=== PATIENT | female | born 1950 | race Caucasian/White ===

== ENCOUNTER 2018-05-23 23:13 | Emergency (ER) | payer OTHER, MEDICARE ==
[~2018-05-23 23:13] MED LIST: ACET325T51 PO; ASEN10TA10 SL; CELE-84 PO; DICY10CA13 PO; GABA300S PO; LISI1TAB13 PO; PANT40TA25 PO; VENL150T3 PO; ZOLP10TA6 PO
[2018-05-23] MEDS ORDERED: KETOROLAC TROMETHAMINE 30MG/ML ONE (23:30)
== END 2018-05-24 | disposition home or self-care (01) ==
LOC: EDH 23:13
DX: M79.7 Fibromyalgia (principal); I10 Essential (primary) hypertension; Z98.890 Other specified postprocedural states
CPT/HCPCS: 96372; 99283; J1885

== ENCOUNTER 2018-09-30 17:57 | Emergency (ER) | payer OTHER, MEDICARE ==
[2018-09-30 18:48] LABS: APPEARANCE,URINE Clear (CLEAR); BILIRUBIN,URINE Negative (NEGATIVE); COLOR,URINE Yellow (YELLOW); GLUCOSE, URINE (UA) Negative (NEGATIVE); KETONES,URINE Negative (NEGATIVE); LEUKOCYTE ESTERASE ,URINE Small (NEGATIVE); NITRATE,URINE Negative (NEGATIVE); OCCULT BLOOD,URINE Negative (NEGATIVE); PH,URINE 7.5 (5.0-8.0); PROTEIN,URINE Negative (NEGATIVE); UROBILINOGEN,URINE 0.2 mg/dL (0.2-1.0)
[2018-09-30 18:51] LABS: BASOPHILS % (AUTO) 0.5 % (0.0-5.0); HEMATOCRIT 41.1 % (36-48); LYMPHOCYTES % (AUTO) 26.8 % (21.0-51.0); MEAN CORPUSCULAR HEMOGLOBIN 34.6 pg (27.0-33.0); MEAN CORPUSCULAR HGB CONC 35.9 g/dL (32.0-36.0); MEAN CORPUSCULAR VOLUME 96.5 fL (79-99); MONOCYTES % (AUTO) 1.6 % (3.0-13.0); NEUTROPHILS % (AUTO) 71.1 % (40.0-77.0); NUCLEATED RED BLOOD CELLS 0.1 % (0.0-0.19); PLATELET COUNT (AUTO) 244 K/uL (130-400); RED BLOOD CELL COUNT(AUTO) 4.26 MIL/uL (4.00-5.50); WHITE BLOOD COUNT (AUTO) 6.4 K/uL (4.8-10.8)
[2018-09-30] MEDS ORDERED: MORPHINE SULFATE 4 MG/1ML SYG ONE (18:55)
[2018-09-30] MEDS ORDERED: ONDANSETRON HCL 4 MG/2 ML VIAL ONE (18:55)
[2018-09-30] MEDS ORDERED: SODIUM CHLORIDE 0.9% 1000ML 1,000 ML IV ONE (18:55)
[2018-09-30 19:03] LABS: CREATININE 0.8 mg/dL (0.5-1.5); POTASSIUM 3.6 mmol/L (3.5-5.1)
[2018-09-30 19:08] LABS: ALBUMIN 4.1 g/dL (3.5-5.0); BILIRUBIN,TOTAL 1.1 mg/dL (0.2-1.0); TOTAL PROTEIN, SERUM 6.9 g/dL (6.0-8.3)
[2018-09-30 19:39] LABS: BACTERIA,URINE Rare /HPF (None Seen); RBC,URINE None Seen /HPF (0-1); SQUAMOUS EPITHELIAL CELL,UR 0-2 /HPF (0-2); WBC,URINE 0-1 /HPF (0-1)
== END 2018-09-30 20:38 | disposition home or self-care (01) ==
LOC: EDH 17:57
DX: K57.90 Diverticulosis of intestine, part unspecified, without perforation or abscess without bleeding (principal); M79.7 Fibromyalgia; I10 Essential (primary) hypertension; K21.9 Gastro-esophageal reflux disease without esophagitis
CPT/HCPCS: 36415; 74176; 80053; 81001; 85025; 96374; 96375; 99284; J2270; J2405; J7030

== ENCOUNTER → 2019-11-26 | Outpatient (CLI) | payer OTHER, MEDICARE ==
[~2019-11-26] MED LIST changes: -LISI1TAB13 PO; +LISI1TAB29 PO
== END | disposition home or self-care (01) ==
LOC: SHCH 13:56
PROVIDERS: ATTEND Internal Medicine Cardiovascular Disease
DX: I35.1 Nonrheumatic aortic (valve) insufficiency (principal)
CPT/HCPCS: 93306

== ENCOUNTER → 2020-07-17 | Emergency (ER) | payer OTHER, MEDICARE ==
[~2020-07-17] MED LIST changes: -PANT40TA25 PO; +PANT40TA54 PO
[2020-07-17 21:56] LABS: BASOPHILS % (AUTO) 0.6 % (0.0-5.0); EOSINOPHILS % (AUTO) 0.8 % (0.0-8.0); HEMATOCRIT 32.5 % (36-48); LYMPHOCYTES % (AUTO) 30.9 % (21.0-51.0); MEAN CORPUSCULAR HEMOGLOBIN 33.3 pg (27.0-33.0); MEAN CORPUSCULAR HGB CONC 35.7 g/dL (32.0-36.0); MEAN CORPUSCULAR VOLUME 93.4 fL (79-99); MONOCYTES % (AUTO) 3.8 % (3.0-13.0); NEUTROPHILS % (AUTO) 63.7 % (40.0-77.0); PLATELET COUNT (AUTO) 156 K/uL (130-400); RED BLOOD CELL COUNT(AUTO) 3.48 MIL/uL (4.00-5.50); RED CELL DISTRIBUTION WIDTH 13.1 % (11.0-15.5); WHITE BLOOD COUNT (AUTO) 4.8 K/uL (4.8-10.8)
[2020-07-17 22:13] LABS: CARBON DIOXIDE 25 mmol/L (21-32); CHLORIDE 102 mmol/L (101-111); CREATININE 0.7 mg/dL (0.5-1.5); GLOMERULAR FILTR. RATE CALC 88 mL/min (>60); GLUCOSE,RANDOM 121 mg/dL (70-105); POTASSIUM 3.2 mmol/L (3.5-5.1); SODIUM SERUM 136 mmol/L (136-145); UREA NITROGEN, BLOOD 9 mg/dL (7-18)
[2020-07-17 22:18] LABS: ALANINE AMINOTRANSFERASE 22 U/L (12-78); ALBUMIN 3.4 g/dL (3.5-5.0); ALCOHOL, BLOOD < 3 mg/dL (0-10); ASPARTATE AMINOTRANSFERASE 17 U/L (10-37); BILIRUBIN,TOTAL 1.1 mg/dL (0.2-1.0); TOTAL PROTEIN, SERUM 6.4 g/dL (6.0-8.3)
[2020-07-17 22:34] LABS: APPEARANCE,URINE Clear (CLEAR); BILIRUBIN,URINE Negative (NEGATIVE); COLOR,URINE Yellow (YELLOW); GLUCOSE, URINE (UA) Negative (NEGATIVE); KETONES,URINE Negative (NEGATIVE); LEUKOCYTE ESTERASE ,URINE Negative (NEGATIVE); NITRATE,URINE Negative (NEGATIVE); OCCULT BLOOD,URINE Negative (NEGATIVE); PROTEIN,URINE Negative (NEGATIVE); UROBILINOGEN,URINE 0.2 mg/dL (0.2-1.0)
[2020-07-17 22:41] LABS: AMPHET/METH SCREEN,URINE NEGATIVE (NEGATIVE); BARBITURATE SCREEN, URINE NEGATIVE (NEGATIVE); BENZODIAZEPINES SCREEN,URINE NEGATIVE (NEGATIVE); CANNABINOID SCREEN,URINE NEGATIVE (NEGATIVE); COCAINE SCREEN,URINE NEGATIVE (NEGATIVE); OPIATE SCREEN,URINE NEGATIVE (NEGATIVE); PHENCYCLIDINE SCREEN,URINE NEGATIVE (NEGATIVE)
== END ==
LOC: EDH 20:04
DX: F13.10 Sedative, hypnotic or anxiolytic abuse, uncomplicated (principal); I10 Essential (primary) hypertension; K21.9 Gastro-esophageal reflux disease without esophagitis
CPT/HCPCS: 36415; 71045; 80053; 80305; 81003; 85025

== ENCOUNTER → 2021-04-17 | Outpatient (CLI) | payer OTHER | END | disposition home or self-care (01) | LOC: OIH 13:34 | PROVIDERS: ATTEND Internal Medicine Cardiovascular Disease | DX: Z13.6 Encounter for screening for cardiovascular disorders (principal) | CPT/HCPCS: 75571 ==

== ENCOUNTER → 2021-04-24 | Outpatient (CLI) | payer OTHER, MEDICARE | END | disposition home or self-care (01) | LOC: RAH 12:42 | PROVIDERS: ATTEND Orthopaedic Surgery | DX: M17.12 Unilateral primary osteoarthritis, left knee (principal); K57.90 Diverticulosis of intestine, part unspecified, without perforation or abscess without bleeding; N32.89 Other specified disorders of bladder; M85.88 Other specified disorders of bone density and structure, other site | CPT/HCPCS: 73700 ==

== ENCOUNTER 2021-05-15 08:16 | Observation (INO) | payer OTHER, MEDICARE ==
[2021-05-08 13:35] VITALS: BP 119/68
[2021-05-08 14:03] LABS: CREATININE 0.9 mg/dL (0.5-1.5)
[2021-05-08 14:06] LABS: INR 1.01 (0.85-1.15)
[2021-05-08 14:07] LABS: PARTIAL THROMBOPLASTIN TIME 28.1 SEC (26.3-35.5)
[2021-05-08 14:15] LABS: BASOPHILS % (AUTO) 0.6 % (0.0-5.0); EOSINOPHILS % (AUTO) 1.1 % (0.0-8.0); HEMATOCRIT 35.4 % (36-48); LYMPHOCYTES % (AUTO) 47.3 % (21.0-51.0); MEAN CORPUSCULAR HEMOGLOBIN 32.1 pg (27.0-33.0); MEAN CORPUSCULAR HGB CONC 35.6 g/dL (32.0-36.0); MEAN CORPUSCULAR VOLUME 90.1 fL (79-99); MONOCYTES % (AUTO) 3.6 % (3.0-13.0); PLATELET COUNT (AUTO) 211 K/uL (130-400); RED BLOOD CELL COUNT(AUTO) 3.93 MIL/uL (4.00-5.50); RED CELL DISTRIBUTION WIDTH 13.5 % (11.0-15.5); WHITE BLOOD COUNT (AUTO) 5.3 K/uL (4.8-10.8)
[2021-05-15] VITALS (24 sets, daily range): BP systolic 125–154; BP diastolic 60–75
[~2021-05-15] VITALS: Ht 162.6 cm; Wt 164.2 kg
[2021-05-15] MEDS: CEFAZOLIN SODIUM 1 GM VIAL IVP SCH ×3 (06:00→20:47)
[~2021-05-15 08:16] MED LIST changes: -ACET325T51 PO; +AMLO-257 PO; +ATOR10TA69 PO; -CELE-84 PO; +CLON1TAB12 PO; +CLOP75TA32 PO; +DENO60DI SQ; -DICY10CA13 PO; +FLUT15.845 NS; -GABA300S PO; +HYDR12.54 PO; +LACTATED RINGERS 1000ML 1,000 ML IV SCH; -LISI1TAB29 PO; +LOSA100T58 PO; +NABU-141 PO; +NALO25TA4 PO; +OXYC10TA48 PO; +PREG50CA63 PO; +ROPIVICAINE 250MG+KETOROLAC 15MG+EPINEPHRINE 0.3+CLONIDINE 80 IV PRN; +TRANEXAMIC ACID 3,000 MG in 0.9% NACL 250ML 250 ML TP SCH; -VENL150T3 PO
[2021-05-15] MEDS ORDERED: MORPHINE 2 MG SYG ONE (10:50)
[2021-05-15] MEDS ORDERED: LIDOCAINE PF 100MG/5ML (2%) SYRINGE 5ML ONE (11:17)
[2021-05-15] MEDS ORDERED: SUCCINYLCHOLINE CHLORIDE 20 MG/ML 10 ML VIAL ONE (11:18)
[2021-05-15] MEDS ORDERED: FENTANYL CITRATE PF 50 MCG/1 ML 2ML VIAL ONE (11:19)
[2021-05-15] MEDS ORDERED: PROPOFOL 10 MG/ML 20ML VIAL IV ONE (11:19)
[2021-05-15] MEDS ORDERED: ROCURONIUM 10MG/1ML SYR 10 MG/ML ML ONE (11:19)
[2021-05-15] MEDS ORDERED: ROPIVACAINE 0.5% 5MG/ML 30ML IJ ONE (11:23)
[2021-05-15] MEDS ORDERED: HYDROCODONE/ACETAMINOPHEN 5/325 MG TAB PO PRN (12:00)
[2021-05-15] MEDS ORDERED: POTASSIUM CHLORIDE 20MEQ/100ML 100 ML IV PRN (12:00)
[2021-05-15] MEDS ORDERED: POTASSIUM CHLORIDE 10% ELIXIR 20 MEQ/15 ML UDCUP PO PRN (12:00)
[2021-05-15] MEDS ORDERED: OXYCODONE HCL 5 MG TAB PO PRN (12:00)
[2021-05-15] MEDS ORDERED: PROLIA 60 MG SQ SCH (12:00)
[2021-05-15] MEDS: ACETAMINOPHEN 500 MG TABLET PO SCH ×2 (12:00→19:04)
[2021-05-15] MEDS: 0.9%NACL 1000ML 1,000 ML IV SCH ×2 (12:00→22:00)
[2021-05-15] MEDS ORDERED: LIDOCAINE HCL-MPF 1% 2ML VIAL IV PRN (12:00)
[2021-05-15] MEDS ORDERED: ONDANSETRON 4MG INJ IVP PRN (12:00)
[2021-05-15] MEDS ORDERED: TRANEXAMIC ACID 1000MG/10ML ONE (12:39)
[2021-05-15] MEDS: CLONAZEPAM 1MG TAB PO SCH ×2 (14:00→19:04)
[2021-05-15] MEDS: PREGABALIN 25 MG CAP PO SCH ×2 (14:00→19:04)
[2021-05-15] MEDS ORDERED: GLYCOPYRROLATE 1 MG/5 ML SYRINGE ONE (14:02)
[2021-05-15] MEDS ORDERED: EPHEDRINE SULFATE 50 MG/ML AMPULE ONE (14:07)
[2021-05-15] MEDS: AMLODIPINE 5 MG TAB PO SCH (15:00)
[2021-05-15] MEDS ORDERED: ONDANSETRON 4MG INJ ONE (16:07)
[2021-05-15] MEDS ORDERED: NEOSTIGMINE 5MG/5ML SYR IV ONE (16:07)
[2021-05-15] MEDS: OXYCODONE HCL 5 MG TAB PO SCH ×2 (17:00→21:12)
[2021-05-15] MEDS ORDERED: MEPERIDINE-PF 25 MG/ML SYG ONE (17:08)
[2021-05-15] MEDS: ZOLPIDEM TARTRATE 5 MG TAB PO SCH (20:45)
[2021-05-15] MEDS: MORPHINE 4 MG SYG IVP PRN (20:46)
[2021-05-15] MEDS: SAPHRIS 10 MG SL SCH (21:00)
[2021-05-16] MEDS: MORPHINE 4 MG SYG IVP PRN ×2 (00:37→10:28)
[2021-05-16] MEDS ORDERED: CEFAZOLIN SODIUM 1 GM VIAL ONE (03:18)
[2021-05-16] MEDS: CEFAZOLIN SODIUM 1 GM VIAL IVP SCH (03:28)
[2021-05-16] MEDS: ACETAMINOPHEN 500 MG TABLET PO SCH ×3 (03:29→20:00)
[2021-05-16 03:43] VITALS: BP 132/67
[2021-05-16 05:33] LABS: HEMATOCRIT 29.7 % (36-48); MEAN CORPUSCULAR HEMOGLOBIN 32.2 pg (27.0-33.0); RED BLOOD CELL COUNT(AUTO) 3.23 MIL/uL (4.00-5.50); RED CELL DISTRIBUTION WIDTH 14.1 % (11.0-15.5); WHITE BLOOD COUNT (AUTO) 6.1 K/uL (4.8-10.8)
[2021-05-16 06:07] LABS: CREATININE 0.8 mg/dL (0.5-1.5); POTASSIUM 3.3 mmol/L (3.5-5.1)
[2021-05-16 07:26] VITALS: BP 153/66
[2021-05-16] MEDS: 0.9%NACL 1000ML 1,000 ML IV SCH (08:00)
[2021-05-16] MEDS: POLYETHYLENE GLYCOL 3350 17 GM POWD.PACK PO SCH (09:00)
[2021-05-16] MEDS: MOVANTIK 25 MG PO SCH (09:00)
[2021-05-16] MEDS: PANTOPRAZOLE 40 MG TAB DR PO SCH (09:15)
[2021-05-16] MEDS: LOSARTAN 100 MG TABLET PO SCH (09:15)
[2021-05-16] MEDS: PREGABALIN 25 MG CAP PO SCH ×3 (09:16→19:56)
[2021-05-16] MEDS: CLONAZEPAM 1MG TAB PO SCH ×3 (09:16→19:53)
[2021-05-16] MEDS: HYDROCHLOROTHIAZIDE 25 MG TABLET PO SCH (09:16)
[2021-05-16] MEDS: OXYCODONE HCL 5 MG TAB PO SCH ×2 (09:19→12:49)
[2021-05-16] MEDS ORDERED: FENTANYL 25 MCG/HR PATCH TD SCH (09:58)
[2021-05-16 11:34] VITALS: BP 157/72
[2021-05-16] MEDS: CELECOXIB 100 MG CAP PO SCH ×2 (12:48→19:53)
[2021-05-16] MEDS: AMLODIPINE 5 MG TAB PO SCH (15:52)
[2021-05-16] MEDS: KCL 20 MEQ ERTAB PO PRN ×2 (16:00→16:01)
[2021-05-16 16:02] VITALS: BP 154/71
[2021-05-16 19:39] VITALS: BP 147/64
[2021-05-16] MEDS: ZOLPIDEM TARTRATE 5 MG TAB PO SCH (19:53)
[2021-05-16] MEDS: SAPHRIS 10 MG SL SCH (19:59)
[2021-05-17] VITALS: BP 138/61
[2021-05-17] MEDS: MORPHINE 4 MG SYG IVP PRN (01:02)
[2021-05-17 03:52] VITALS: BP 138/52
[2021-05-17] MEDS: ACETAMINOPHEN 500 MG TABLET PO SCH ×2 (04:00→12:14)
[2021-05-17] MEDS: OXYCODONE HCL 5 MG TAB PO SCH ×3 (06:19→12:13)
[2021-05-17 07:33] VITALS: BP 140/66
[2021-05-17] MEDS: MOVANTIK 25 MG PO SCH (09:00)
[2021-05-17] MEDS: POLYETHYLENE GLYCOL 3350 17 GM POWD.PACK PO SCH (09:00)
[2021-05-17] MEDS: CLONAZEPAM 1MG TAB PO SCH (09:44)
[2021-05-17] MEDS: PANTOPRAZOLE 40 MG TAB DR PO SCH (09:45)
[2021-05-17] MEDS: CELECOXIB 100 MG CAP PO SCH (09:45)
[2021-05-17] MEDS: HYDROCHLOROTHIAZIDE 25 MG TABLET PO SCH (09:45)
[2021-05-17] MEDS: LOSARTAN 100 MG TABLET PO SCH (09:45)
[2021-05-17] MEDS: PREGABALIN 25 MG CAP PO SCH (09:45)
[2021-05-17 12:03] VITALS: BP 130/72
[2021-05-18] MEDS ORDERED: BISACODYL 10 MG SUPP.RECT RC PRN (12:00)
== END 2021-05-17 14:20 ==
LOC: DAH 08:16 → INTOOBSV 08:17 → DAH 08:17 → DAHIP 08:17 → 3BH 17:25
PROVIDERS: ADMIT Orthopaedic Surgery; ATTEND Orthopaedic Surgery
DX: M17.12 Unilateral primary osteoarthritis, left knee (principal); Z20.822 Contact with and (suspected) exposure to COVID-19; I10 Essential (primary) hypertension; M79.7 Fibromyalgia; R11.2 Nausea with vomiting, unspecified
CPT/HCPCS: 27447; S2900; 36415; 64447; 73560; 76942; 80048; 85025; 85027; 85610; 85730; 87635; 87641; 88305; 88311; 96361; 96374; 96375; 96376; 97039; C9803; G0378; J0171; J0330; J0690; J0735; J1885; J2001; J2175; J2270; J2405; J2704; J2710; J2795; J3010; J3490; J7040; J7050; J7120

== ENCOUNTER → 2022-01-02 | Outpatient (CLI) | payer OTHER, MEDICARE ==
[~2022-01-02] MED LIST changes: +ALBUTEROL 0.083% 2.5 MG/3 ML INH IH ONE; -LACTATED RINGERS 1000ML 1,000 ML IV SCH; -ROPIVICAINE 250MG+KETOROLAC 15MG+EPINEPHRINE 0.3+CLONIDINE 80 IV PRN; -TRANEXAMIC ACID 3,000 MG in 0.9% NACL 250ML 250 ML TP SCH
== END | disposition home or self-care (01) ==
LOC: RESP 12:53
PROVIDERS: ATTEND Internal Medicine Cardiovascular Disease
DX: R06.00 Dyspnea, unspecified (principal)
CPT/HCPCS: 94060

== ENCOUNTER → 2022-01-10 | Outpatient (CLI) | payer OTHER, MEDICARE ==
[~2022-01-10] MED LIST changes: -ALBUTEROL 0.083% 2.5 MG/3 ML INH IH ONE
== END | disposition home or self-care (01) ==
LOC: SHCH 13:42
PROVIDERS: ATTEND Internal Medicine Cardiovascular Disease
DX: I35.1 Nonrheumatic aortic (valve) insufficiency (principal); I11.9 Hypertensive heart disease without heart failure; E66.9 Obesity, unspecified
CPT/HCPCS: 93306

== ENCOUNTER 2022-08-15 09:05 | Observation (INO) | payer OTHER, MEDICARE ==
[~2022-08-15] VITALS: Ht 167.6 cm; Wt 79.2 kg
[2022-08-15 09:36] LABS: BASOPHILS % (AUTO) 0.7 % (0.0-5.0); EOSINOPHILS % (AUTO) 1.1 % (0.0-8.0); HEMATOCRIT 31.9 % (36-48); LYMPHOCYTES % (AUTO) 36.7 % (21.0-51.0); MEAN CORPUSCULAR HEMOGLOBIN 32.9 pg (27.0-33.0); MEAN CORPUSCULAR HGB CONC 36.7 g/dL (32.0-36.0); MEAN CORPUSCULAR VOLUME 89.6 fL (79-99); MONOCYTES % (AUTO) 5.3 % (3.0-13.0); NEUTROPHILS % (AUTO) 55.5 % (40.0-77.0); PLATELET COUNT (AUTO) 163 K/uL (130-400); RED BLOOD CELL COUNT(AUTO) 3.56 MIL/uL (4.00-5.50); RED CELL DISTRIBUTION WIDTH 13.1 % (11.0-15.5); WHITE BLOOD COUNT (AUTO) 2.8 K/uL (4.8-10.8)
[2022-08-15 09:50] LABS: ALANINE AMINOTRANSFERASE 20 U/L (12-78); ALBUMIN 3.8 g/dL (3.5-5.0); ASPARTATE AMINOTRANSFERASE 11 U/L (10-37); CARBON DIOXIDE 26 mmol/L (21-32); GLOMERULAR FILTR. RATE CALC 58 mL/min (>60); GLUCOSE,RANDOM 107 mg/dL (70-105); POTASSIUM 3.9 mmol/L (3.5-5.1); SODIUM SERUM 120 mmol/L (136-145); TOTAL PROTEIN, SERUM 6.2 g/dL (6.0-8.3); UREA NITROGEN, BLOOD 4 mg/dL (7-18)
[2022-08-15 09:51] LABS: CHLORIDE 86 mmol/L (101-111); LIPASE < 50 U/L (114-286)
[2022-08-15 10:05] LABS: APPEARANCE,URINE CLEAR (CLEAR); BILIRUBIN,URINE NEGATIVE (NEGATIVE); COLOR,URINE COLORLESS (YELLOW); GLUCOSE, URINE (UA) NEGATIVE (NEGATIVE); KETONES,URINE NEGATIVE (NEGATIVE); LEUKOCYTE ESTERASE ,URINE 75 Leu/uL (NEGATIVE); NITRATE,URINE NEGATIVE (NEGATIVE); OCCULT BLOOD,URINE NEGATIVE (NEGATIVE); PROTEIN,URINE NEGATIVE (NEGATIVE); UROBILINOGEN,URINE 0.2 mg/dL (0.2-1.0)
[2022-08-15 10:15] LABS: RBC,URINE 0-1 /HPF (0-1); SQUAMOUS EPITHELIAL CELL,UR RARE /HPF (0-2)
[2022-08-15 10:22] LABS: EOSINOPHILS % (MANUAL) 3 % (1-6); LYMPHOCYTES % (MANUAL) 40 % (22-44); MAN.DIFF COMMENT-IMPRESSION MANUAL DIFFERENTIAL; MONOCYTES % (MANUAL) 5 % (2-9); PLATELET MORPHOLOGY COMMENT ADEQUATE; SEGMENTED NEUTROPHILS % 52 % (40-70)
[2022-08-15] MEDS ORDERED: 0.9%NACL 1000ML 1,000 ML IV ONE (10:30)
[2022-08-15] MEDS ORDERED: CEFTRIAXONE 1G VIAL IVP ONE (10:30)
[2022-08-15] MEDS ORDERED: ONDANSETRON 4MG INJ IVP ONE (11:00)
[2022-08-15] MEDS ORDERED: KETOROLAC 15MG/ML VIAL (15MG/ML) IV ONE (11:00)
[2022-08-15] MEDS ORDERED: ONDANSETRON 4MG INJ IVP PRN (12:00)
[2022-08-15] MEDS ORDERED: HYDRALAZINE 20MG/ML VIAL IV PRN (12:00)
[2022-08-15] MEDS ORDERED: LABETALOL 20MG SYG IV PRN (12:00)
[2022-08-15] MEDS ORDERED: LACTULOSE 20 GM/30 ML UDCUP PO PRN (12:00)
[2022-08-15] MEDS ORDERED: ALBUTEROL 0.083% 2.5 MG/3 ML INH IH PRN (12:00)
[2022-08-15] MEDS ORDERED: HYDROMORPHONE 1 MG INJ IVP PRN (12:00)
[2022-08-15] MEDS: 0.9%NACL 1000ML 1,000 ML IV SCH ×2 (13:13→19:51)
[2022-08-15] MEDS: LACTULOSE 20 GM/30 ML UDCUP PO SCH ×2 (15:00→19:51)
[2022-08-15] MEDS: CEFEPIME HCL 2 GM VIAL IVP SCH (15:08)
[2022-08-15 15:15] LABS: CREATININE 0.8 mg/dL (0.5-1.5)
[2022-08-15] MEDS: INSULIN HUMULIN R 100 UNIT/ML 3ML SQ SCH ×2 (16:30→21:00)
[2022-08-15 19:30] VITALS: BP 115/57
[2022-08-15] MEDS: ACETAMINOPHEN 325 MG TAB PO PRN (19:52)
[2022-08-16] MEDS: 0.9%NACL 1000ML 1,000 ML IV SCH (03:55)
[2022-08-16] MEDS: CEFEPIME HCL 2 GM VIAL IVP SCH (03:55)
[2022-08-16 04:35] VITALS: BP 103/50
[2022-08-16 05:08] LABS: BASOPHILS % (AUTO) 0.7 % (0.0-5.0); EOSINOPHILS % (AUTO) 0.7 % (0.0-8.0); HEMATOCRIT 29.8 % (36-48); LYMPHOCYTES % (AUTO) 45.5 % (21.0-51.0); MEAN CORPUSCULAR HEMOGLOBIN 32.7 pg (27.0-33.0); MEAN CORPUSCULAR HGB CONC 34.9 g/dL (32.0-36.0); MEAN CORPUSCULAR VOLUME 93.7 fL (79-99); MONOCYTES % (AUTO) 4.7 % (3.0-13.0); PLATELET COUNT (AUTO) 155 K/uL (130-400); RED BLOOD CELL COUNT(AUTO) 3.18 MIL/uL (4.00-5.50); RED CELL DISTRIBUTION WIDTH 13.7 % (11.0-15.5); WHITE BLOOD COUNT (AUTO) 2.8 K/uL (4.8-10.8)
[2022-08-16 05:26] LABS: CREATININE 0.7 mg/dL (0.5-1.5); MAGNESIUM 1.8 mg/dL (1.80-2.40); PHOSPHORUS 3.3 mg/dL (2.5-4.9); POTASSIUM 4.1 mmol/L (3.5-5.1); THYROID STIMULATING HORMONE 3.94 uIU/mL (0.36-3.74)
[2022-08-16 05:54] LABS: B-TYPE NATRIURETIC PEPTIDE 71 pg/mL (0-100)
[2022-08-16 07:00] VITALS: BP 120/66
[2022-08-16] MEDS: INSULIN HUMULIN R 100 UNIT/ML 3ML SQ SCH (07:30)
[2022-08-16] MEDS: LACTULOSE 20 GM/30 ML UDCUP PO SCH (09:19)
[2022-08-16] MEDS: ACETAMINOPHEN 325 MG TAB PO PRN (09:20)
[2022-08-16 11:00] VITALS: BP 142/69
[2022-08-16] MEDS ORDERED: BISACODYL 10 MG SUPP.RECT RC ONE (13:31)
[2022-08-16] MEDS ORDERED: TOPIRAMATE 25 MG TABLET PO SCH (14:30)
[2022-08-16] MEDS ORDERED: AMOX1TAB16 PO (14:34)
[2022-08-16] MEDS ORDERED: TOPI25TA42 PO (14:34)
[2022-08-17] MEDS ORDERED: LEVO750T68 PO (07:04)
== END 2022-08-16 15:00 | disposition home or self-care (01) ==
LOC: EDH 09:05 → EDHIP 11:48 → 4AH 17:25
PROVIDERS: ADMIT Internal Medicine Critical Care Medicine; ATTEND Internal Medicine Critical Care Medicine
DX: E87.1 Hypo-osmolality and hyponatremia (principal); N30.00 Acute cystitis without hematuria; R51.9 Headache, unspecified; K57.90 Diverticulosis of intestine, part unspecified, without perforation or abscess without bleeding; I11.0 Hypertensive heart disease with heart failure; I50.30 Unspecified diastolic (congestive) heart failure; G47.00 Insomnia, unspecified; G89.29 Other chronic pain; M54.9 Dorsalgia, unspecified; E86.0 Dehydration; K80.20 Calculus of gallbladder without cholecystitis without obstruction; B96.5 Pseudomonas (aeruginosa) (mallei) (pseudomallei) as the cause of diseases classified elsewhere; K59.09 Other constipation; F41.8 Other specified anxiety disorders; Z91.199 Patient's noncompliance with other medical treatment and regimen due to unspecified reason; Z91.81 History of falling; Z79.899 Other long term (current) drug therapy
CPT/HCPCS: 96374; 96361 ×2; 96375; 99285; 84484; 80053; 82140; 83690; 85025 ×2; 87040 ×2; 87077; 87088; 87186; 82948; 83605 ×2; 81001; 36415 ×2; 70450; 74176; 76705; 93005; 84145 ×2; 96376; 84443; 83735; 84100; 80048; 83880; G0378 ×27; J7030 ×2; J0696; J2405; J0692 ×2; J1885

== ENCOUNTER 2022-11-05 09:58 | Emergency (ER) | payer OTHER, MEDICARE ==
[~2022-11-05] VITALS: Ht 162.6 cm; Wt 73.5 kg
[~2022-11-05 09:58] MED LIST changes: -HYDR12.54 PO; +LEVO750T68 PO; -LOSA100T58 PO; +TOPI25TA42 PO
[2022-11-05 10:24] LABS: BASOPHILS % (AUTO) 0.6 % (0.0-5.0); EOSINOPHILS % (AUTO) 1.1 % (0.0-8.0); HEMATOCRIT 36.2 % (36-48); LYMPHOCYTES % (AUTO) 38.9 % (21.0-51.0); MEAN CORPUSCULAR HEMOGLOBIN 31.2 pg (27.0-33.0); MEAN CORPUSCULAR HGB CONC 33.7 g/dL (32.0-36.0); MEAN CORPUSCULAR VOLUME 92.6 fL (79-99); MONOCYTES % (AUTO) 4.5 % (3.0-13.0); NEUTROPHILS % (AUTO) 54.6 % (40.0-77.0); PLATELET COUNT (AUTO) 213 K/uL (130-400); RED BLOOD CELL COUNT(AUTO) 3.91 MIL/uL (4.00-5.50); RED CELL DISTRIBUTION WIDTH 14.4 % (11.0-15.5); WHITE BLOOD COUNT (AUTO) 6.5 K/uL (4.8-10.8)
[2022-11-05 10:27] LABS: APPEARANCE,URINE CLEAR (CLEAR); BILIRUBIN,URINE NEGATIVE (NEGATIVE); COLOR,URINE COLORLESS (YELLOW); GLUCOSE, URINE (UA) NEGATIVE (NEGATIVE); KETONES,URINE NEGATIVE (NEGATIVE); LEUKOCYTE ESTERASE ,URINE NEGATIVE Leu/uL (NEGATIVE); NITRATE,URINE NEGATIVE (NEGATIVE); OCCULT BLOOD,URINE NEGATIVE (NEGATIVE); PROTEIN,URINE NEGATIVE (NEGATIVE); UROBILINOGEN,URINE 0.2 mg/dL (0.2-1.0)
[2022-11-05 10:37] LABS: CREATININE 0.8 mg/dL (0.5-1.5); POTASSIUM 3.7 mmol/L (3.5-5.1)
[2022-11-05 10:39] LABS: ALBUMIN 3.9 g/dL (3.5-5.0); TOTAL PROTEIN, SERUM 6.4 g/dL (6.0-8.3)
[2022-11-05] MEDS ORDERED: ACETAMINOPHEN 500 MG TABLET PO ONE (12:30)
[2022-11-05 13:23] VITALS: BP 144/71
== END 2022-11-05 13:26 | disposition home or self-care (01) ==
LOC: EDH 09:58
DX: J32.9 Chronic sinusitis, unspecified (principal); R10.11 Right upper quadrant pain; I10 Essential (primary) hypertension; F20.9 Schizophrenia, unspecified; F41.9 Anxiety disorder, unspecified; F32.A Depression, unspecified; Z88.5 Allergy status to narcotic agent; Z87.440 Personal history of urinary (tract) infections; Z79.899 Other long term (current) drug therapy; Z20.822 Contact with and (suspected) exposure to COVID-19
CPT/HCPCS: 99283; 87635; 80053; 83690; 85025; 87804 ×2; 81003; 36415; C9803

== ENCOUNTER 2023-08-27 11:00 | Emergency (ER) | payer OTHER, MEDICARE ==
[~2023-08-27] VITALS: Ht 162.6 cm; Wt 64.4 kg
[~2023-08-27 11:00] MED LIST changes: -PREG50CA63 PO; +PREG50CA64 PO
[2023-08-27] MEDS ORDERED: MORPHINE 4 MG SYG IVP ONE (12:00)
[2023-08-27] MEDS ORDERED: LACTATED RINGERS 1000ML 1,000 ML IV ONE ×2 (12:00)
[2023-08-27] MEDS ORDERED: FAMOTIDINE 20MG VIAL IV ONE (12:00)
[2023-08-27] MEDS ORDERED: METOCLOPRAMIDE 10 MG/2 ML VIAL IVP ONE (12:00)
[2023-08-27 12:05] LABS: BASOPHILS # (AUTO) 0.04 K/uL (0.00-0.20); BASOPHILS % (AUTO) 0.7 % (0.0-5.0); EOSINOPHILS # (AUTO) 0.02 K/uL (0.00-0.70); EOSINOPHILS % (AUTO) 0.3 % (0.0-8.0); HEMATOCRIT 40.9 % (36-48); IMMATURE GRANULOCYTE ABSOLUTE 0.02 K/uL (0-1); LYMPHOCYTES # (AUTO) 1.4 K/uL (1.0-4.8); LYMPHOCYTES % (AUTO) 23.2 % (21.0-51.0); MEAN CORPUSCULAR HEMOGLOBIN 31.1 pg (27.0-33.0); MEAN CORPUSCULAR VOLUME 88.9 fL (79-99); MONOCYTES # (AUTO) 0.3 K/uL (0.1-1.0); MONOCYTES % (AUTO) 4.7 % (3.0-13.0); NEUTROPHILS # (AUTO) 4.2 K/uL (1.8-7.7); NEUTROPHILS % (AUTO) 70.8 % (40.0-77.0); PLATELET COUNT (AUTO) 234 K/uL (130-400); RED CELL DISTRIBUTION WIDTH 15.2 % (11.0-15.5); WHITE BLOOD COUNT (AUTO) 5.9 K/uL (4.8-10.8)
[2023-08-27 12:08] LABS: ALBUMIN 4.3 g/dL (3.5-5.0); CREATININE 0.8 mg/dL (0.5-1.5)
[2023-08-27 12:14] LABS: BILIRUBIN,TOTAL 0.8 mg/dL (0.2-1.0); TOTAL PROTEIN, SERUM 7.4 g/dL (6.0-8.3)
[2023-08-27 12:37] LABS: THYROID STIMULATING HORMONE 0.76 uIU/mL (0.36-3.74)
[2023-08-27 13:34] LABS: APPEARANCE,URINE CLEAR (CLEAR); BILIRUBIN,URINE NEGATIVE (NEGATIVE); COLOR,URINE LIGHT-YELLOW (YELLOW); GLUCOSE, URINE (UA) NEGATIVE (NEGATIVE); KETONES,URINE 40 mg/dL (NEGATIVE); LEUKOCYTE ESTERASE ,URINE NEGATIVE Leu/uL (NEGATIVE); NITRATE,URINE NEGATIVE (NEGATIVE); OCCULT BLOOD,URINE NEGATIVE (NEGATIVE); PH,URINE 7.5 (5.0-8.0); PROTEIN,URINE NEGATIVE (NEGATIVE); UROBILINOGEN,URINE 0.2 mg/dL (0.2-1.0)
[2023-08-27 13:48] LABS: ADD UA MICROSCOPIC YES
[2023-08-27 13:52] LABS: SQUAMOUS EPITHELIAL CELL,UR RARE /HPF (0-2); WBC,URINE 0-1 /HPF (0-1)
[2023-08-27] MEDS ORDERED: IOHEXOL-350 75 ML VIAL IV ONE (13:55)
[2023-08-27] MEDS ORDERED: POLY17PO4 PO (16:30)
[2023-08-27 17:24] VITALS: BP 157/74; PULSE 58; RESP 18; O2SAT 99
== END 2023-08-27 17:19 | disposition home or self-care (01) ==
LOC: EDH 11:00
DX: K57.90 Diverticulosis of intestine, part unspecified, without perforation or abscess without bleeding (principal); K80.20 Calculus of gallbladder without cholecystitis without obstruction; K80.50 Calculus of bile duct without cholangitis or cholecystitis without obstruction; F41.9 Anxiety disorder, unspecified; F31.9 Bipolar disorder, unspecified; I10 Essential (primary) hypertension; Z79.02 Long term (current) use of antithrombotics/antiplatelets; Z79.899 Other long term (current) drug therapy; Z88.5 Allergy status to narcotic agent
CPT/HCPCS: 99285; 74178; 96374; 96361; 76705; 96375; 84443; 82550; 83735; 84484; 80053; 83690; 85025; 81001; 36415; 93005; J7120; J3490; J2270; J2765; Q9967

== ENCOUNTER 2023-12-17 23:30 | Observation (INO) | payer OTHER, MEDICARE ==
[~2023-12-17] VITALS: Ht 162.6 cm; Wt 84.0 kg
[~2023-12-17 23:30] MED LIST changes: +POLY17PO4 PO
[2023-12-18] MEDS: PROMETHAZINE HCL 25 MG/ML 1ML AMPULE IM ONE (00:39)
[2023-12-18 00:59] LABS: BASOPHILS # (AUTO) 0.03 K/uL (0.00-0.20); BASOPHILS % (AUTO) 0.5 % (0.0-5.0); EOSINOPHILS % (AUTO) 1.6 % (0.0-8.0); HEMATOCRIT 35.5 % (36-48); IMMATURE GRANULOCYTE ABSOLUTE 0.04 K/uL (0-1); LYMPHOCYTES # (AUTO) 1.2 K/uL (1.0-4.8); LYMPHOCYTES % (AUTO) 19.1 % (21.0-51.0); MEAN CORPUSCULAR HEMOGLOBIN 31.6 pg (27.0-33.0); MEAN CORPUSCULAR HGB CONC 36.1 g/dL (32.0-36.0); MEAN CORPUSCULAR VOLUME 87.7 fL (79-99); MONOCYTES # (AUTO) 0.3 K/uL (0.1-1.0); MONOCYTES % (AUTO) 5.4 % (3.0-13.0); NEUTROPHILS # (AUTO) 4.4 K/uL (1.8-7.7); NEUTROPHILS % (AUTO) 72.7 % (40.0-77.0); PLATELET COUNT (AUTO) 251 K/uL (130-400); RED BLOOD CELL COUNT(AUTO) 4.05 MIL/uL (4.00-5.50); RED CELL DISTRIBUTION WIDTH 13.4 % (11.0-15.5); WHITE BLOOD COUNT (AUTO) 6.1 K/uL (4.8-10.8)
[2023-12-18] MEDS: MAG/ALUM/SIMETH 30 ML UDCUP PO ONE (01:07)
[2023-12-18] MEDS: LACTATED RINGERS 1000ML 1,000 ML IV ONE (01:07)
[2023-12-18 01:14] LABS: ALBUMIN 3.6 g/dL (3.5-5.0); BILIRUBIN,TOTAL 0.8 mg/dL (0.2-1.0); CREATININE 0.6 mg/dL (0.5-1.0); TOTAL PROTEIN, SERUM 6.6 g/dL (6.0-8.3)
[2023-12-18 01:18] LABS: POTASSIUM 2.9 mmol/L (3.5-5.1)
[2023-12-18 02:00] LABS: APPEARANCE,URINE CLEAR (CLEAR); BILIRUBIN,URINE NEGATIVE (NEGATIVE); COLOR,URINE COLORLESS (YELLOW); GLUCOSE, URINE (UA) NEGATIVE (NEGATIVE); KETONES,URINE NEGATIVE (NEGATIVE); LEUKOCYTE ESTERASE ,URINE NEGATIVE Leu/uL (NEGATIVE); NITRATE,URINE NEGATIVE (NEGATIVE); OCCULT BLOOD,URINE NEGATIVE (NEGATIVE); PROTEIN,URINE NEGATIVE (NEGATIVE); UROBILINOGEN,URINE 0.2 mg/dL (0.2-1.0)
[2023-12-18 02:02] LABS: ADD UA MICROSCOPIC NO
[2023-12-18] MEDS: POTASSIUM BICARB/CIT AC 25 MEQ TABLET.EFF PO ONE ×2 (03:00→03:01)
[2023-12-18] MEDS: NITROGLYCERIN 1GM OINT 1 INCH/1GM TD ONE (03:04)
[2023-12-18] MEDS ORDERED: HALOPERIDOL INJ 5 MG/ML VIAL IM SCH (03:30)
[2023-12-18] MEDS: HALOPERIDOL INJ 5 MG/ML VIAL IM SCH (03:48)
[2023-12-18] MEDS ORDERED: LACTULOSE 20 GM/30 ML UDCUP PO PRN (04:00)
[2023-12-18] MEDS ORDERED: PROMETHAZINE HCL 25 MG/ML 1ML AMPULE IM PRN (04:00)
[2023-12-18] MEDS ORDERED: IPRATROPIUM/ALBUTEROL SULFATE 3 ML SOLUTION IH PRN (04:00)
[2023-12-18] MEDS ORDERED: TEMAZEPAM 15 MG CAPSULE PO PRN (04:00)
[2023-12-18] MEDS ORDERED: ACETAMINOPHEN 325 MG TAB PO PRN (04:00)
[2023-12-18] MEDS ORDERED: ONDANSETRON 4MG INJ IVP PRN (04:00)
[2023-12-18] MEDS ORDERED: HYDRALAZINE 20MG/ML VIAL IV PRN (04:00)
[2023-12-18] MEDS: LACTATED RINGERS 1000ML 1,000 ML IV SCH (04:00)
[2023-12-18] MEDS ORDERED: ACETAMINOPHEN 650 MG SUPPOSITORY RC PRN (04:00)
[2023-12-18] MEDS ORDERED: DOCUSATE SODIUM 100 MG CAP PO PRN (04:00)
[2023-12-18 04:15] VITALS: O2SAT 99
[2023-12-18 04:20] LABS: AMPHET/METH SCREEN,URINE NEGATIVE (NEGATIVE); BARBITURATE SCREEN, URINE NEGATIVE (NEGATIVE); BENZODIAZEPINES SCREEN,URINE NEGATIVE (NEGATIVE); CANNABINOID SCREEN,URINE NEGATIVE (NEGATIVE); COCAINE SCREEN,URINE NEGATIVE (NEGATIVE); OPIATE SCREEN,URINE NEGATIVE (NEGATIVE); PHENCYCLIDINE SCREEN,URINE NEGATIVE (NEGATIVE)
[2023-12-18] MEDS ORDERED: POTASSIUM CHLORIDE 10% ELIXIR 20 MEQ/15 ML UDCUP PO PRN (04:30)
[2023-12-18] MEDS ORDERED: POTASSIUM CHLORIDE 20MEQ/100ML 100 ML IV PRN (04:30)
[2023-12-18] MEDS ORDERED: MAGNESIUM 2GM PREMIX 50ML 50 ML IV PRN (04:30)
[2023-12-18] MEDS ORDERED: KCL 20 MEQ ERTAB PO PRN (04:30)
[2023-12-18 04:50] VITALS: BP 155/95; PULSE 71; RESP 18
[2023-12-18] MEDS: TRAMADOL HCL 50 MG TABLET PO PRN (06:06)
[2023-12-18] MEDS: INSULIN HUMULIN R 100 UNIT/ML 3ML SQ SCH (06:33)
[2023-12-18 08:35] LABS: HEMATOCRIT 33.8 % (36-48); MEAN CORPUSCULAR HEMOGLOBIN 31.4 pg (27.0-33.0); MEAN CORPUSCULAR HGB CONC 35.8 g/dL (32.0-36.0); MEAN CORPUSCULAR VOLUME 87.8 fL (79-99); RED BLOOD CELL COUNT(AUTO) 3.85 MIL/uL (4.00-5.50); RED CELL DISTRIBUTION WIDTH 13.6 % (11.0-15.5); WHITE BLOOD COUNT (AUTO) 7.3 K/uL (4.8-10.8)
[2023-12-18 08:48] LABS: CREATININE 0.6 mg/dL (0.5-1.0); MAGNESIUM 1.8 mg/dL (1.80-2.40); PHOSPHORUS 2.2 mg/dL (2.5-4.9); POTASSIUM 3.1 mmol/L (3.5-5.1)
[2023-12-18] MEDS ORDERED: ENOXAPARIN SODIUM 40 MG/0.4 ML SYRINGE SQ SCH (09:00)
== END 2023-12-18 10:05 | disposition left against medical advice (07) ==
LOC: EDH 23:30 → EDHIP 23:31 → 3AH 12-18 04:29
PROVIDERS: ADMIT Internal Medicine Critical Care Medicine; ATTEND Internal Medicine Critical Care Medicine
DX: I16.1 Hypertensive emergency (principal); E87.1 Hypo-osmolality and hyponatremia; K57.30 Diverticulosis of large intestine without perforation or abscess without bleeding; I11.0 Hypertensive heart disease with heart failure; I50.32 Chronic diastolic (congestive) heart failure; G47.00 Insomnia, unspecified; F31.9 Bipolar disorder, unspecified; G89.29 Other chronic pain; M54.9 Dorsalgia, unspecified; E87.6 Hypokalemia; F91.1 Conduct disorder, childhood-onset type; F43.10 Post-traumatic stress disorder, unspecified; Z91.199 Patient's noncompliance with other medical treatment and regimen due to unspecified reason; Z91.81 History of falling; Z96.659 Presence of unspecified artificial knee joint; Z79.899 Other long term (current) drug therapy
CPT/HCPCS: 99284; 96372; 83735 ×2; 84100; 84484; 80053; 80305; 83690; 85025; 85027; 82948; 81003; 36415; G0378 ×6; J7120; J2550; J1630; 80048; J1650

== ENCOUNTER → 2024-07-30 | Outpatient (CLI) | payer OTHER, MEDICARE ==
--- NOTE | 2024-07-30 14:09 | HMCIMG ---
CT HEAD/BRAIN W/O CONTRAST HISTORY: Status post fall COMPARISON: None TECHNIQUE: Multiple sequential axial images of the head were obtained from the base of the skull through vertex. Patient was not given contrast through intravenous route. FINDINGS: The ventricles and extraventricular CSF spaces are dilated consistent with cerebral atrophy. Nonspecific white matter changes seen. There is no midline shift, mass effect or herniation. No acute intracranial bleed is seen. Visualized portion of the paranasal sinuses are grossly within normal limits. IMPRESSION: 1. No acute intracranial bleed is seen. 2. Atrophy with white matter changes. CT was performed with one or more following dose reduction techniques: automated exposure control, adjustment of the mA and kv according to patient's size, or use of a iterative reconstruction technique.
== END | disposition home or self-care (01) ==
LOC: RAH 13:33
PROVIDERS: ATTEND Family Medicine
DX: S09.90XA Unspecified injury of head, initial encounter (principal); R51.9 Headache, unspecified; W19.XXXA Unspecified fall, initial encounter; G31.89 Other specified degenerative diseases of nervous system; R90.82 White matter disease, unspecified; X58.XXXA Exposure to other specified factors, initial encounter; Y93.89 Activity, other specified; Y92.89 Other specified places as the place of occurrence of the external cause; Y99.8 Other external cause status
CPT/HCPCS: 70450

== ENCOUNTER 2024-07-31 09:59 | Inpatient (IN) | payer OTHER, MEDICARE ==
[~2024-07-31] VITALS: Ht 157.5 cm; Wt 74.2 kg
--- NOTE | 2024-07-31 10:13 | ERN ---
ED Note History of Present Illness Stated Complaint: CONSTIPATION Chief Complaint: Constipation Time Seen by MD: 10:07 Dictation: Patient is a 74-year-old female coming in today with complaints of a fall five days ago, and constipation 10 days ago. She states the fall was a slip fall same level, hit the back of her head and neck, cervical collar is in place. She states she went to her doctor and he told her he would do plain film x-rays, she states she wanted an MRI. She is neurologically intact to all extremities moves all extremities 4+5 bilaterally. Second complaint is she is complaining of constipation and has had no BM in 10 days. She states she is still eating has had no nausea vomiting. No fever no chills. NIH is 0, no midline spine pain. Allergies: Coded Allergies: codeine (Verified Adverse Reaction, Unknown, 05/15/21) Home Meds Active Scripts Polyethylene Glycol 3350 (Miralax) 17 Gram Powd.pack, 17 GM PO DAILY for constipation, #30 PACKET 11 Refills Prov:BREA NEWBERRY Sr., MD 08/27/23 Levofloxacin (Levaquin 750Mg Tabs) 750 Mg Tablet, 750 MG PO DAILY for 5 Days, #5 TAB Prov:DYLAN BRAVO 08/17/22 Topiramate (Topamax) 25 Mg Tablet, 25 MG PO DAILY for 30 Days, #30 TAB Prov:DYLAN BRAVO 08/16/22 Reported Medications Amlodipine Besylate (Amlodipine Besylate) 5 Mg Tablet, 5 MG PO 1500, TAB 05/11/21 Atorvastatin Calcium (Atorvastatin Calcium) 10 Mg Tablet, 10 MG PO AM, TAB 05/11/21 Clonazepam (Clonazepam) 1 Mg Tablet, 1 MG PO TID, TAB 05/11/21 Clopidogrel Bisulfate (Clopidogrel) 75 Mg Tablet, 75 MG PO DAILY, TAB 05/11/21 Fluticasone Propionate (Fluticasone Propionate) 15.8 Ml [place].susp, 50 MCG NS DAILY 05/11/21 Naloxegol Oxalate (Movantik) 25 Mg Tablet, 25 MG PO AM, TAB 05/11/21 Nabumetone (Nabumetone) 500 Mg Tablet, 500 MG PO BID, TAB 05/11/21 Oxycodone HCl (Oxycodone HCl) 10 Mg Tablet, 10 MG PO qid(6,9,11,15), TAB 05/11/21 Pregabalin (Pregabalin) 50 Mg Capsule, 50 MG PO TID, CAP 05/11/21 Denosumab (Prolia) 60 Mg/1 Ml Disp.syrin, 60 MG SQ [id number], DIS.SYR 05/11/21 Asenapine Maleate (Saphris) 10 Mg Tab.subl, 10 MG SL HS, TAB.SL 06/06/15 Zolpidem Tartrate (Zolpidem Tartrate) 10 Mg Tablet, 10 MG PO HS, TAB 06/06/15 Pantoprazole Sodium (Pantoprazole Sodium) 40 Mg Tablet.dr, 40 MG PO DAILY, TAB 06/06/15 Past Medical History Past Medical History: Hypertension Additional Past Medical Hx: PTSD, CHRONIC BACK PAIN Surgical History: Other Surgical History Other: D&C, BACK, KNEE REPLACEMENT Social History: Negative, Lives with family History: Not Applicable RN Note Reviewed/Agreed w/PFSH: Yes Review of System Dictation CONSTITUTIONAL: Negative except for HPI HEAD/FACE: Negative except for HPI bilateral occipital tenderness palpation EENT: Negative except for HPI RESPIRATORY: Negative except for HPI GASTROINTESTINAL/ABDOMINAL: Negative except for HPI abdomen is soft, active bowel sounds no focal tenderness GENITOURINARY: Negative except for HPI MUSCULOSKELETAL: Negative except for HPI C-collar in place, diffuse post cervical neck tenderness. INTEGUMENTARY: Negative except for HPI neurologically intact NEUROLOGICAL/PSYCH: Negative except for HPI HEMATOLOGIC/LYMPHATIC: Negative except for HPI All Systems Negative, Except as noted above. 13 point review of systems assessed and all negative except for above. Initial Vital Sign VS Vital Signs Date Time Temp Pulse Resp B/P (MAP) Pulse Ox O2 Delivery O2 Flow Rate FiO2 07/31/24 10:01 98.1 65 18 160/77 98 Room Air Physical Exam Dictation Vital Signs reviewed General Appearance: Alert, oriented x 3, n mild acute distress, well developed, nourished. Head and Face: Mild posterior occipital tenderness with palpation bilaterally. No hematoma no kapoor or raccoon sign Eyes: PERRL, pink conjunctivas, eyelid no trauma, anterior chamber with arcus senilis. Ears: Pinnas intact and no signs of trauma or erythema ear canals clear and no discharge TM no erythema no hemotympanum Nose: No discharge, no bleeding. Oropharynx: Mouth normal, tongue pink, pharynx clear,no erythema, tonsils no exudates, no abscesses noted, mucous membrane moist Neck: Supple, non-tender, no thyromegaly, no masses, no JVD, no bruits Breast:Deferred Chest:No tenderness, no crepitus, no paradoxical movement, no retractions Lungs:Clear, well-ventilated, symmetric, no rales, no wheezing, no rhonchi, no stridor, good breath sounds bilaterally Heart: Regular rate, regular rhythm, no murmur, no gallops Vascular: no peripheral edema, Abdomen: Soft, positive bowel sounds, nondistended, no guarding, nontender, no rebound, no masses no hepatomegaly, no splenomegaly, no Kidd's sign, no hernias. No focal tenderness Rectal: Deferred Genital: Deferred Neurological: Normal speech, motor function intact, sensory function intact neuro intact to all extremities Musculoskeletal: Diffuse posterior cervical neck tenderness without midline spine pain., full range of motion, back nontender, full range of motion, Extremities: nontender, full range of motion Skin: Color pink, dry, no turgor, no rash, no lacerations, no abrasions, no contusions. Lymphatic: Deferred Results (Laboratory/Radiology) Laboratory/Radiology Laboratory Tests Test 07/31/24 10:22 07/31/24 10:40 White Blood Count 8.4 K/uL (4.8-10.8) Red Blood Count 4.09 MIL/uL (4.00-5.50) Hemoglobin 12.9 g/dL (12.0-16.0) Hematocrit 35.1 % (36-48) L Mean Corpuscular Volume 85.8 fL (79-99) Mean Corpuscular Hemoglobin 31.5 pg (27.0-33.0) Mean Corpuscular Hemoglobin Concent 36.8 g/dL (32.0-36.0) H Red Cell Distribution Width 13.1 % (11.0-15.5) Platelet Count 285 K/uL (130-400) Mean Platelet Volume 10.5 fL (7.5-10.5) Immature Granulocyte % (Auto) 0.7 % (0-1) Neutrophils (%) (Auto) 63.3 % (40.0-77.0) Lymphocytes (%) (Auto) 26.1 % (21.0-51.0) Monocytes (%) (Auto) 8.3 % (3.0-13.0) Eosinophils (%) (Auto) 1.0 % (0.0-8.0) Basophils (%) (Auto) 0.6 % (0.0-5.0) Neutrophils # (Auto) 5.3 K/uL (1.8-7.7) Lymphocytes # (Auto) 2.2 K/uL (1.0-4.8) Monocytes # (Auto) 0.7 K/uL (0.1-1.0) Eosinophils # (Auto) 0.08 K/uL (0.00-0.70) Basophils # (Auto) 0.05 K/uL (0.00-0.20) Absolute Immature Granulocyte (auto 0.06 K/uL (0-1) Nucleated Red Blood Cells 0.0 % (0.0-0.19) Sodium Level 123 mmol/L (136-145) L Potassium Level 2.9 mmol/L (3.5-5.1) *L Chloride Level 84 mmol/L (101-111) *L Carbon Dioxide Level 38 mmol/L (21-32) H Blood Urea Nitrogen 4 mg/dL (7-18) L Creatinine 0.7 mg/dL (0.5-1.0) Glomerular Filtration Rate Calc 91 mL/min (>90) Random Glucose 121 mg/dL (70-105) H Total Calcium 9.3 mg/dL (8.5-10.1) Troponin I High Sensitivity 6 ng/L (4-50) Urine Color COLORLESS (YELLOW) Urine Appearance CLEAR (CLEAR) Urine pH 7.5 (5.0-8.0) Urine Specific [place] 1.001 (1.001-1.031) Urine Protein NEGATIVE mg/dL (NEGATIVE) Urine Glucose (UA) NEGATIVE mg/dL (NEGATIVE) Urine Ketones NEGATIVE mg/dL (NEGATIVE) Urine Occult Blood NEGATIVE (NEGATIVE) Urine Nitrate NEGATIVE (NEGATIVE) Urine Bilirubin NEGATIVE mg/dL (NEGATIVE) Urine Urobilinogen 0.2 mg/dL (0.2-1.0) Urine Leukocyte Esterase 75 [place]/uL (NEGATIVE) H Urine RBC None /HPF (0-1) Urine WBC 2-5 /HPF (0-1) H Urine Squamous Epithelial Cells FEW /HPF (0-2) Urine Bacteria None /HPF (None Seen) Comparison: None Technique: Spiral axial images were performed from the base of the skull down to the thoracic vertebral bodies. Both sagittal and coronal reconstructions were performed. CT Dose Index (CTDI): 12.85 mGy Dose Length Product (DLP): 282.6 total Findings: There are degenerative changes. Degenerative disc disease is noted at multiple levels. There is reversal of normal cervical lordosis consistent with degeneration and spasm. There are no fractures. There is facet hypertrophy at multiple levels. IMPRESSION: Degenerative changes as noted. No acute pathology. No fractures seen. REASON: Cervical pain status post fall five days ago ORDERING PHYSICIAN: MAU WOODS NP PROCEDURE: HEAD WO - CT HEAD/BRAIN W/O CONTRAST Exam Type: CT HEAD/BRAIN W/O CONTRAST Clinical Information: Cervical pain status post fall five days ago Comparison: None CT Dose Index (CTDI): 57.33 mGy Dose Length Product (DLP): 956.79 total mGy-cm Findings: This study was performed using dose reduction techniques to include automated exposure control and/or adjustment of the mA and/or kV according to patient size. The examination is unremarkable except for atrophy William-white matter junction is preserved. No intra or extra axial lesions or fluid collections are seen. Specifically, william and white matter are normal in signal characteristics with normal caliber of ventricles and periventricular cisterns with no evidence of intra or or extra-axial hemorrhage, lacunar infarct, or major territorial infarct, mass, or other abnormality. There are no infarcts. There are no hemorrhages. Periventricular white matter locations are preserved. The orbital contents and structures of the posterior fossa are intact. Impression: Atrophy. This study was performed using dose reduction techniques to include automated exposure control and/or adjustment of the mA and/or kV according to patient size. KUB demonstrates nonspecific gas pattern and retained stool. Labs Reviewed?: Yes ED Course ED Course Orders Procedure Category Date Status Time Cbc With Differential LAB 07/31/24 In Process 10:08 Basic Metabolic Panel LAB 07/31/24 Complete 10:08 Abd 1vw RAD 07/31/24 Resulted 10:08 Ct Head/Brain W/O CT 07/31/24 Resulted Contrast 10:08 Lactulose 20 Gm/30 Ml PHA 07/31/24 In Process Udcup (Constulose 10:30 Acetaminophen 500mg PHA 07/31/24 In Process Tab (Tylenol 500mg T 10:30 Ct Cervical Spine W/O CT 07/31/24 Resulted Contrast 10:26 Potassium Bicarb/Cit PHA 07/31/24 In Process Ac 25meq (K-Lyte Ta 11:00 Troponin I High LAB 07/31/24 Complete Sensitivity 10:47 Urinalysis Profile LAB 07/31/24 Complete 10:47 12 Lead Ekg Tracing- EKG 07/31/24 Resulted Technical 10:47 0.9%Nacl 1000ml (Ns PHA 07/31/24 In Process 1000ml) 11:00 Culture Urine LISSETH 07/31/24 In Process 11:25 Current Medications Medications (Trade) Dose Ordered Sig/Jo Route PRN Reason Start Time Stop Time Status Last Admin Dose Admin Acetaminophen (TYLenol 500MG TAB) 1,000 mg ONCE ONCE PO 07/31/24 10:30 07/31/24 10:31 07/31/24 11:32 Lactulose (Constulose 20gm/ 30ml Udcup) 20 gm ONCE ONCE PO 07/31/24 10:30 07/31/24 10:31 07/31/24 11:31 Potassium Bicarbonate (K-Lyte Tablet Eff 25 Meq Tablet.eff) 25 meq ONCE ONCE PO 07/31/24 11:00 07/31/24 11:01 07/31/24 11:32 Sodium Chloride 1,000 ml @ 0 mls/hr ONCE ONCE IV 07/31/24 11:00 07/31/24 11:01 07/31/24 11:31 Vital Signs Date Time Temp Pulse Resp B/P (MAP) Pulse Ox O2 Delivery O2 Flow Rate FiO2 07/31/24 10:01 98.1 65 18 160/77 98 Room Air 1048, patient has sodium 123, chloride 84, potassium 2.9. We will follow to begin 1 L normal saline, we will give potassium 25 mEq p.o. and anticipate admission to the hospital. 1205, SPOKE WITH TABATHA SAHA HOSPITALIST AND REVIEWED CT OF THE HEAD AND NECK KUB LABS KUB EKG AND INTERVENTIONS FOR ELECTROLYTE IMBALANCE SHE AGREED TO ADMIT. Medical Decision Making MDM MDM: DIFFERENTIAL DIAGNOSIS: CERVICAL INJURY/HEAD INJURY/SKULL FRACTURE/CONTUSION/ELECTROLYTE IMBALANCE/DEHYDRATION/CONSTIPATION RATIONALE: TESTS CONSIDERED AND ORDERED SECONDARY TO SHARED DECISION MAKING INCLUDE: LABS, ECG AND RADIOLOGY PREVIOUS OUTSIDE RECORDS REVIEWED: OLD ER VISITS. REVIEWED RISK OF COMPLICATION AND/OR MORBIDITY OR MORTALITY OF PATIENT MANAGEMENT: MODERATE, PATIENT WE WILL NEED ELECTROLYTE REPLACEMENT AND FLUID MANAGEMENT MEDICATIONS-PER MEDICATION RECONCILIATION REVIEWED NEED FOR HOSPITALIZATION: PATIENT DOES MEET CRITERIA FOR HOSPITALIZATION. SEE ABOVE NEED FOR EMERGENCY MAJOR/MINOR SURGERY: NO THERE ARE NO SOCIAL CONCERNS WITH THIS PATIENT. SPOKE WITH PATIENT AND SHE AGREED TO BE ADMITTED TO THE HOSPITAL FOR REHYDRATION AND ELECTROLYTE STABILIZATION REMAINS NEUROLOGICALLY INTACT PRESCRIPTION DRUG MANAGEMENT PRESCRIPTIONS WILL INCLUDE SYMPTOMATIC CARE PATIENT'S PRIOR EXTERNAL MEDICAL RECORDS FROM OTHER ER VISITS WERE REVIEWED BY ME INDICATED. PRIOR TESTING AND RESULTS FROM PREVIOUS VISITS WERE REVIEWED. PRIOR TESTS WERE TAKEN INTO ACCOUNT WITH MEDICAL DECISION MAKING AND RESOURCE UTILIZATION, INDEPENDENT HISTORIAN/HISTORIANS WERE USED TO OBTAIN COMPLETE MEDICAL HISTORY. I INDEPENDENTLY INTERPRETED THE TEST THAT WERE PERFORMED, RESULTS WERE REVIEWED BY ME AND CONSIDERED FINDINGS ON RADIOLOGY IF ORDERED. MEDICAL MANAGEMENT AND EXAMINATION INTERPRETATION DISCUSSIONS WERE HAD BY ME WITH OTHER QUALIFIED HEALTHCARE PROFESSIONALS INDICATED FOR THE PATIENT'S CARE. DX & DISP Disposition: Inpatient Decision to Admit Time: 11:49 Departure Impression: Primary Impression: Acute hyponatremia Additional Impressions: Hypochloremia, Hypokalemia, Dehydration, Posttraumatic headache, Cervical strain, acute, Fall Condition: Stable Referrals: VIVIAN LEAVITT MD (PCP) Time of Disposition: 11:49 I have reviewed the case, and I agree with, Diagnosis and Plan MAU WOODS NP Jul 31, 2024 10:13
[2024-07-31 10:30] LABS: BASOPHILS # (AUTO) 0.05 K/uL (0.00-0.20); BASOPHILS % (AUTO) 0.6 % (0.0-5.0); EOSINOPHILS # (AUTO) 0.08 K/uL (0.00-0.70); HEMATOCRIT 35.1 % (36-48); IMMATURE GRANULOCYTE ABSOLUTE 0.06 K/uL (0-1); LYMPHOCYTES # (AUTO) 2.2 K/uL (1.0-4.8); LYMPHOCYTES % (AUTO) 26.1 % (21.0-51.0); MEAN CORPUSCULAR HEMOGLOBIN 31.5 pg (27.0-33.0); MEAN CORPUSCULAR HGB CONC 36.8 g/dL (32.0-36.0); MEAN CORPUSCULAR VOLUME 85.8 fL (79-99); MONOCYTES # (AUTO) 0.7 K/uL (0.1-1.0); MONOCYTES % (AUTO) 8.3 % (3.0-13.0); NEUTROPHILS # (AUTO) 5.3 K/uL (1.8-7.7); NEUTROPHILS % (AUTO) 63.3 % (40.0-77.0); PLATELET COUNT (AUTO) 285 K/uL (130-400); RED BLOOD CELL COUNT(AUTO) 4.09 MIL/uL (4.00-5.50); RED CELL DISTRIBUTION WIDTH 13.1 % (11.0-15.5); WHITE BLOOD COUNT (AUTO) 8.4 K/uL (4.8-10.8)
[2024-07-31 10:39] LABS: CREATININE 0.7 mg/dL (0.5-1.0)
[2024-07-31 10:46] LABS: POTASSIUM 2.9 mmol/L (3.5-5.1)
--- NOTE | 2024-07-31 11:02 | EKG ---
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
[2024-07-31 11:08] LABS: APPEARANCE,URINE CLEAR (CLEAR); BILIRUBIN,URINE NEGATIVE (NEGATIVE); COLOR,URINE COLORLESS (YELLOW); GLUCOSE, URINE (UA) NEGATIVE (NEGATIVE); KETONES,URINE NEGATIVE (NEGATIVE); LEUKOCYTE ESTERASE ,URINE 75 Leu/uL (NEGATIVE); NITRATE,URINE NEGATIVE (NEGATIVE); OCCULT BLOOD,URINE NEGATIVE (NEGATIVE); PH,URINE 7.5 (5.0-8.0); PROTEIN,URINE NEGATIVE (NEGATIVE); UROBILINOGEN,URINE 0.2 mg/dL (0.2-1.0)
--- NOTE | 2024-07-31 11:10 | HMCIMG ---
Exam Type: CT HEAD/BRAIN W/O CONTRAST Clinical Information: Cervical pain status post fall five days ago Comparison: None CT Dose Index (CTDI): 57.33 mGy Dose Length Product (DLP): 956.79 total mGy-cm Findings: This study was performed using dose reduction techniques to include automated exposure control and/or adjustment of the mA and/or kV according to patient size. The examination is unremarkable except for atrophy William-white matter junction is preserved. No intra or extra axial lesions or fluid collections are seen. Specifically, william and white matter are normal in signal characteristics with normal caliber of ventricles and periventricular cisterns with no evidence of intra or or extra-axial hemorrhage, lacunar infarct, or major territorial infarct, mass, or other abnormality. There are no infarcts. There are no hemorrhages. Periventricular white matter locations are preserved. The orbital contents and structures of the posterior fossa are intact. Impression: Atrophy. This study was performed using dose reduction techniques to include automated exposure control and/or adjustment of the mA and/or kV according to patient size.
--- NOTE | 2024-07-31 11:10 | HMCIMG ---
Exam Type: CT cervical spine without contrast Clinical Information: NECK PAIN Comparison: None Technique: Spiral axial images were performed from the base of the skull down to the thoracic vertebral bodies. Both sagittal and coronal reconstructions were performed. CT Dose Index (CTDI): 12.85 mGy Dose Length Product (DLP): 282.6 total Findings: There are degenerative changes. Degenerative disc disease is noted at multiple levels. There is reversal of normal cervical lordosis consistent with degeneration and spasm. There are no fractures. There is facet hypertrophy at multiple levels. IMPRESSION: Degenerative changes as noted. No acute pathology. No fractures seen. This study was performed using dose reduction techniques to include automated exposure control and/or adjustment of the mA and/or kV according to patient size.
[2024-07-31 11:24] LABS: ADD UA MICROSCOPIC YES
[2024-07-31 11:26] LABS: MUCUS,URINE RARE LPF (None Seen); SQUAMOUS EPITHELIAL CELL,UR FEW /HPF (0-2)
[2024-07-31] MEDS: LACTULOSE 20 GM/30 ML UDCUP PO ONE (11:31)
[2024-07-31] MEDS: 0.9%NACL 1000ML 1,000 ML IV ONE (11:31)
[2024-07-31] MEDS: acetaMINOPHEN 500 MG TABLET PO ONE (11:32)
[2024-07-31] MEDS: PoTASSium BIcarbonate/CIT AC 25 MEQ TABLET.EFF PO ONE (11:32)
--- NOTE | 2024-07-31 11:44 | HMCIMG ---
Exam Type: ABD 1VW Clinical Information: constipation times 10 days Comparison: None Findings: Abdomen demonstrates no evidence of pathologic calcification or soft tissue mass. There are no radiopacities to suggest calculous disease. The intestinal gas pattern is within normal limits without evidence of dilatation to suggest obstruction or adynamic ileus. There are significant degenerative changes and postoperative changes of the lumbar spine. IMPRESSION: Normal bowel gas pattern.
[2024-07-31] MEDS ORDERED: PoTASSium chloRIDE 20MEQ/100ML 100 ML IV PRN ×2 (12:30)
[2024-07-31] MEDS ORDERED: PoTASSium chl 10% ELIXIR 20MEQ 20 MEQ/15 ML UDCUP PO PRN (12:30)
[2024-07-31] MEDS ORDERED: acetaMINOPHEN 650 MG SUPPOSITORY RC PRN (12:30)
[2024-07-31] MEDS ORDERED: acetaMINOPHEN 325 MG TAB PO PRN (12:30)
--- NOTE | 2024-07-31 13:20 | NUR ---
PIEDAD MENDEZ [facility] AT BEDSIDE
--- NOTE | 2024-07-31 13:36 | HP ---
[facility] HISTORY & PHYSICAL Date Patient Seen: Jul 31, 2024 Time of Visit: 13:36 Supervising Physician: Rahul Hutson MD Primary Care Physician: Zeb Lord MD Outpatient Specialists: Cardiology Dr Madison Inpatient Consults: DR Madison PROBLEM LIST: Electrolyte derangement (hyponatremia, hypokalemia, hypochloremia) Acute cystitis, POA Constipation R/O SBO, POA Hyperglycemia, POA Ectopic atrial rhythm, prolonged QT 675, POA Frequent falls, POA Suspect Syncope episodes, POA Diastolic heart failure with EF of 55-60% on 2021 Essential hypertension, POA Anxiety Depression Chronic back pain 2/2 back surgery Noncompliant Obesity Suspected VALDEMAR undiagnosed and untreated, POA (STOP-Bang Score 4 points) Serum CO2 38 HPI: This is a 74-year-old obese female with a past medical history of chronic back pain on morphine at home, lumbar back surgery, diastolic heart fa ilure EF of 55-60%, essential hypertension, insomnia, depression, anxiety and falls who came into the emergency department for complaint of constipation with no bowel movement in the last 10 days. Patient also reported frequent falls with last fall being four days ago. Patient reported head and neck pain CT of the head and neck appeared unremarkable per ED provider pending radiology reading. Per ED provider he recommends patient to be admitted for electrolyte abnormalities. On assessment of patient she is awake alert and oriented x3, patient has slow speech but answers all questions appropriately. She reports generalized body pain due to fibromyalgia and arthritis. Patient also states she takes morphine 3 times a day for her chronic back pain and fibromyalgia. As per patient she had to come into the emergency department because she has not had a bowel movement in 10 days. Patient reports she ran out of her MiraLax at home which may have contribute to her constipation. She reports recurring falls last fall being four days ago. She reports not remembering how she fell. Pt does reports urinary frequency but denies dysuria. CBC is unremarkable, chemistries shows sodium of 123 potassium of 2.9 chloride of 84 carbon dioxide of 38 BUN of four creatinine of 0.7 and glucose of 121 mg/dL. Urinalysis leukocyte esterase 75 and WBCs 2-5. PAST MEDICAL HX: Hyponatremia Headaches Diverticulosis Diastolic heart failure EF 55-60% Hypertension Insomnia Depression Anxiety Back pain Noncompliant falls PAST SURGICAL HX: noncontributory SOCIAL HISTORY: No tobacco, ETOH, or illicit drug use Coded Allergies: No Known Allergies (Verified Allergy, Unknown, 07/31/24) codeine (Verified Adverse Reaction, Unknown, 05/15/21) REVIEW OF SYSTEMS: Const: No fever, yes to fatigue and weight gain Eyes:[ no recent vision problems] ENT: [No congestion, ear pain, or sore throat] C/V: [no chest pain, palpitations or edema] Resp: [No cough, congestion, wheezing , or Shortness of breath] GI: [No abdominal pain, nausea, vomiting, constipation, or diarrhea] : [No incontinence of or dyuria] M/S: Yes to generalized body aches, yes to lower back pain. Skin: [No rash] Neuro: Yes to headache, and neck pain no focal weakness. Psych: yes to anxiety Heme: [no abnormal bruising or bleeding] Lymph: [no swollen glands] PHYSICAL EXAM: GENERAL: alert, weak, awake oriented x 3 HEENT: EOMI, Sclera non icteric, moist mucosa NECK: Supple, no JVD, trachea midline, neck pain, negative Brudzinski's sign, and negative Kernig's sign. LUNGS: Clear breath sounds bilaterally. No wheezes HEART: Regular rate and rhythm. Normal S1 and S2, without murmurs ABD: Abdomen soft, nontender. Bowel sounds present EXT: No clubbing cyanosis or edema NEURO: Alert and oriented to person, follows commands, reports lumbar pain HX of lower back surgery. Vital Signs (last 8hr) Date Time Temp Pulse Resp B/P (MAP) Pulse Ox O2 Delivery O2 Flow Rate FiO2 07/31/24 13:14 62 14 160/63 97 Room Air* 0 21 07/31/24 10:01 98.1 65 18 160/77 98 Room Air LABS: Hematology Labs: Test 07/31/24 10:22 Range/Units White Blood Count 8.4 4.8-10.8 K/uL Red Blood Count 4.09 4.00-5.50 MIL/uL Hemoglobin 12.9 12.0-16.0 g/dL Hematocrit 35.1 L 36-48 % Mean Corpuscular Volume 85.8 79-99 fL Mean Corpuscular Hemoglobin 31.5 27.0-33.0 pg Mean Corpuscular Hemoglobin Concent 36.8 H 32.0-36.0 g/dL Red Cell Distribution Width 13.1 11.0-15.5 % Platelet Count 285 130-400 K/uL Mean Platelet Volume 10.5 7.5-10.5 fL Immature Granulocyte % (Auto) 0.7 0-1 % Neutrophils (%) (Auto) 63.3 40.0-77.0 % Lymphocytes (%) (Auto) 26.1 21.0-51.0 % Monocytes (%) (Auto) 8.3 3.0-13.0 % Eosinophils (%) (Auto) 1.0 0.0-8.0 % Basophils (%) (Auto) 0.6 0.0-5.0 % Neutrophils # (Auto) 5.3 1.8-7.7 K/uL Lymphocytes # (Auto) 2.2 1.0-4.8 K/uL Monocytes # (Auto) 0.7 0.1-1.0 K/uL Eosinophils # (Auto) 0.08 0.00-0.70 K/uL Basophils # (Auto) 0.05 0.00-0.20 K/uL Absolute Immature Granulocyte (auto 0.06 0-1 K/uL Nucleated Red Blood Cells 0.0 0.0-0.19 % Red Blood Cell Morphology See comments Chemistry Labs: Test 07/31/24 10:22 Range/Units Sodium Level 123 L 136-145 mmol/L Potassium Level 2.9 *L 3.5-5.1 mmol/L Chloride Level 84 *L 101-111 mmol/L Carbon Dioxide Level 38 H 21-32 mmol/L Blood Urea Nitrogen 4 L 7-18 mg/dL Creatinine 0.7 0.5-1.0 mg/dL Glomerular Filtration Rate Calc 91 >90 mL/min Random Glucose 121 H 70-105 mg/dL Total Calcium 9.3 8.5-10.1 mg/dL Troponin I High Sensitivity 6 4-50 ng/L DIAGNOSTICS / RADIOLOGY RESULTS: [ ] PLAN Admit to medsurg with tele monitoring. nurse to update home meds and reconcile once available. Tele monitoring CMP now to recheck K. NEURO: Minimize central acting medications as possible. Maintain fall precautions, adequate lighting during the day multimodal pain management PULMONARY: Supplemental 02 as needed. Maintain aspiration precautions at all times maintain o2 sats above 92% CARDIOVASCULAR: Follow hemodynamics. 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 Continue stool softeners and laxatives as needed. clear liquids for now CT abdomen and pelvis to r/o SBO Bowel regimen KIDNEYS & ELECTROLYTES: Strict monitoring of intake, output and overall fluid balance. Avoid nephrotoxic medications to the extent possible. Medications to be dosed according to renal function. Monitor electrolytes and replace as needed ENDOCRINE: Maintain blood glucose between 100-180 at all times. Hypoglycemia protocol in place INFECTIOUS DISEASE: Trend temperature, WBC and procalcitonin level Follow cultures, deescalate antibiotics as soon as possible. Panculture if new onset fever ONCOLOGY/HEMATOLOGY/COAGULATION: Monitor for s/s of bleeding Monitor hemoglobin, coagulation studies as needed SKIN: Pressure ulcer prevention per facility protocol Specialty mattress ORTHO/REHAB: Continue PT/OT Prophylaxis: Continue GI and DVT prophylaxis Code Status: Full Resuscitation Disposition: TBD Other: Total patient care time exceeds 35 minutes excluding all procedures. PIEDAD MARK [facility] Jul 31, 2024 13:36
[2024-07-31] MEDS: amLODIPine 5 MG TAB PO SCH (14:18)
[2024-07-31] MEDS: BisaCODYL 10 MG SUPP.RECT RC ONE (14:18)
[2024-07-31] MEDS: LACTATED RINGERS 1000ML 1,000 ML IV SCH (14:18)
[2024-07-31] MEDS: ZOSYN 3.375GM +NS 50ML IV SCH (14:20)
--- NOTE | 2024-07-31 14:25 | HMCIMG ---
CT ABDOMEN PELVIS WITHOUT CONTRAST Clinical Information: CONSTIPATION Comparison: CT Dose Index (CTDI): mGy Dose Length Product (DLP): total mGy-cm PROTOCOL: Routine noncontrast helical scanning of the abdomen and pelvis was performed at 5mm collimation. Findings: No evidence of nephro or ureterolithiasis is found. No hydronephrosis or ureteral dilatation is seen. The lung bases are clear. The spleen, pancreas, gallbladder and adrenal glands are unremarkable. The liver is unremarkable. It shows no focal masses. The appendix is unremarkable. There is diverticulosis of the colon particularly involving the sigmoid colon. There are no acute inflammatory changes to suggest diverticulitis. Abundant fecal matter is noted consistent with constipation. The small and large bowel and pelvic viscera are otherwise unremarkable. The bony and vascular structures are unremarkable for the patient's age. Postoperative changes of the lumbar spine. IMPRESSION: Diverticulosis of the colon particularly involving the sigmoid. Constipation. Otherwise negative CT SCAN OF THE ABDOMEN AND PELVIS. NO RENAL STONES. NO ACUTE PATHOLOGY OR INFLAMMATION SEEN. This study was performed using dose reduction techniques to include automated exposure control and/or adjustment of the mA and/or kV according to patient size.
--- NOTE | 2024-07-31 15:00 | NUR ---
DR ADKINS CONSULTED FOR CARDIOLOGY CONSULT SPOKE TO ON PHONE NO NEW ORDERS AT THIS TIME
[2024-07-31 15:22] LABS: ALBUMIN 3.5 g/dL (3.5-5.0); BILIRUBIN,TOTAL 1.1 mg/dL (0.2-1.0); CREATININE 0.8 mg/dL (0.5-1.0); POTASSIUM 3.1 mmol/L (3.5-5.1); THYROID STIMULATING HORMONE 1.17 uIU/mL (0.36-3.74); TOTAL PROTEIN, SERUM 6.5 g/dL (6.0-8.3)
[2024-07-31] MEDS: INSULIN humuLIN R 100 UNIT/ML 3ML SQ SCH (16:30)
[2024-07-31 17:00] LABS: COVID19 (SARS ANTIGEN RAPID) PRESUMPTIVE NEGATIVE (NEGATIVE)
[2024-07-31 17:01] LABS: INFLUENZA TYPE A Negative For Type A (NEGATIVE); INFLUENZA TYPE B Negative For Type B (NEGATIVE)
[2024-07-31] MEDS: traMADol HCL 50 MG TABLET PO PRN (19:20)
[2024-07-31] MEDS: MELATONIN 5 MG TABLET PO SCH (20:49)
[2024-07-31] MEDS: LISINOPRIL 10 MG TABLET PO SCH (20:49)
--- NOTE | 2024-07-31 21:14 | NUR ---
REPORT GIVEN TO MORTEZA NEVES.PT GOING TO RM 403.
[2024-07-31 21:25] VITALS: BP 155/78; PULSE 61; RESP 19; TEMP 97.6
--- NOTE | 2024-07-31 21:25 | NUR ---
admit admit to room 403 via stretcher from er,patient awake, alert, ox3, no sob, soft collar intact, left ac 20 gauge patent with ivf infusing well , no home medications brought with patient, patients states i call my provider shena hooper to bring in the morning, teach plan of care and expected outcome, patient verbalizes understanding via teach back
[2024-07-31] MEDS: PoTASSium chloRIDE 20MEQ ER 20 MEQ ERTAB PO PRN (21:45)
[2024-07-31] MEDS: clonazePAM 1MG TAB PO PRN (21:50)
--- NOTE | 2024-07-31 22:35 | NUR ---
Patient assessed she is claustrophobic and will not tolerate bipap. Addendum: 07/31/24 at 2239 by SHAY HERNANDEZ RT Amended: Links added.
[2024-08-01] VITALS (11 sets, daily range): BP systolic 103–149; BP diastolic 53–69; PULSE 54–63; RESP 16–18; TEMP 97.6–98.2; O2SAT 95–99
[2024-08-01] MEDS: hydroMORPHone 0.5 MG SYG (0.5MG/0.5ML) IVP PRN (02:51)
[2024-08-01 06:02] LABS: BASOPHILS # (AUTO) 0.06 K/uL (0.00-0.20); BASOPHILS % (AUTO) 1.1 % (0.0-5.0); EOSINOPHILS # (AUTO) 0.09 K/uL (0.00-0.70); EOSINOPHILS % (AUTO) 1.6 % (0.0-8.0); HEMATOCRIT 31.9 % (36-48); IMMATURE GRANULOCYTE ABSOLUTE 0.04 K/uL (0-1); LYMPHOCYTES # (AUTO) 1.9 K/uL (1.0-4.8); LYMPHOCYTES % (AUTO) 33.2 % (21.0-51.0); MEAN CORPUSCULAR HEMOGLOBIN 31.5 pg (27.0-33.0); MEAN CORPUSCULAR HGB CONC 34.8 g/dL (32.0-36.0); MEAN CORPUSCULAR VOLUME 90.6 fL (79-99); MONOCYTES # (AUTO) 0.6 K/uL (0.1-1.0); NEUTROPHILS % (AUTO) 52.4 % (40.0-77.0); PLATELET COUNT (AUTO) 243 K/uL (130-400); RED BLOOD CELL COUNT(AUTO) 3.52 MIL/uL (4.00-5.50); RED CELL DISTRIBUTION WIDTH 13.4 % (11.0-15.5); WHITE BLOOD COUNT (AUTO) 5.7 K/uL (4.8-10.8)
[2024-08-01 06:34] LABS: HEMOGLOBIN A1C 5.3 % (4.0-6.0)
[2024-08-01 06:43] LABS: CREATININE 0.7 mg/dL (0.5-1.0); MAGNESIUM 1.6 mg/dL (1.80-2.40); PHOSPHORUS 2.6 mg/dL (2.5-4.9); POTASSIUM 4.2 mmol/L (3.5-5.1); THYROID STIMULATING HORMONE 2.37 uIU/mL (0.36-3.74)
[2024-08-01] MEDS: ASPIRIN 81 MG EC TAB PO SCH (07:55)
[2024-08-01] MEDS: PANTOPrazole 40 MG TAB DR PO SCH (07:55)
[2024-08-01] MEDS: MAGNESIUM 2GM PREMIX 50ML 50 ML IV PRN (07:56)
[2024-08-01] MEDS: polyETHYLene GLYCol 3350 17 GM POWD.PACK PO SCH (07:56)
[2024-08-01] MEDS: atorVAStatin 10 MG TABLET PO SCH (08:05)
--- NOTE | 2024-08-01 13:02 | PN ---
[facility] PROGRESS NOTE Date Patient Seen: Aug 01, 2024 Time of Visit: 13:02 Supervising Physician: Dr. Engle Primary Care Physician: Zeb Lord MD Outpatient Specialists: Cardiology Dr Madison Inpatient Consults: DR Madison PROBLEM LIST: Electrolyte derangement (hyponatremia, hypokalemia, hypochloremia) Acute cystitis, POA Constipation R/O SBO, POA Hyperglycemia, POA Ectopic atrial rhythm, prolonged QT 675, POA Frequent falls, POA Suspect Syncope episodes, POA Diastolic heart failure with EF of 55-60% on 2021 Essential hypertension, POA Anxiety Depression Chronic back pain 2/2 back surgery Noncompliant Obesity Suspected VALDEMAR undiagnosed and untreated, POA (STOP-Bang Score 4 points) Serum CO2 38 INTERVAL HISTORY: Patient was evaluated at bedside, she is comfortable at this time, states that she has had two very small bowel movements but still feels like she is constipated. Per nursing staff the patient was refusing oral medications at this time aside from her electrolyte replacements. Sodium and potassium are within normal limits today, chloride is improved however remains in the low end of normal. Patient states that the oral constipation medications have not worked and take too long, she is requesting an enema, advised that we can proceed with a Fleet enema at this time to see if that will aid in evacuating her bowels. She continues on Zosyn at this time for acute complicated cystitis. White count today is 5.7, hemoglobin stable at 11.1. We will continue to monitor and continue constipation medication around the clock until the patient passes a bowel movement. REVIEW OF SYSTEMS: Const: No fever, yes to fatigue and weight gain Eyes:[ no recent vision problems] ENT: [No congestion, ear pain, or sore throat] C/V: [no chest pain, palpitations or edema] Resp: [No cough, congestion, wheezing , or Shortness of breath] GI: [No abdominal pain, nausea, vomiting, constipation, or diarrhea] : [No incontinence of or dyuria] M/S: Yes to generalized body aches, yes to lower back pain. Skin: [No rash] Neuro: Yes to headache, and neck pain no focal weakness. Psych: yes to anxiety Heme: [no abnormal bruising or bleeding] Lymph: [no swollen glands] PHYSICAL EXAM: GENERAL: alert, weak, awake oriented x 3 HEENT: EOMI, Sclera non icteric, moist mucosa NECK: Supple, no JVD, trachea midline, neck pain, negative Brudzinski's sign, and negative Kernig's sign. LUNGS: Clear breath sounds bilaterally. No wheezes HEART: Regular rate and rhythm. Normal S1 and S2, without murmurs ABD: Abdomen soft, nontender. Bowel sounds present EXT: No clubbing cyanosis or edema NEURO: Alert and oriented to person, follows commands, reports lumbar pain HX of lower back surgery. Vital Signs (last 8hr) Date Time Temp Pulse Resp B/P (MAP) Pulse Ox O2 Delivery O2 Flow Rate FiO2 08/01/24 11:09 98.2 55 17 149/62 93 Room Air 21 08/01/24 08:00 95 Room Air* 0 21 08/01/24 07:43 98.1 57 16 114/58 95 Room Air 21 08/01/24 06:23 59 18 N/A Room Air 21 LABS: Hematology Labs: Test 08/01/24 05:31 07/31/24 10:22 Range/Units White Blood Count 5.7 # 4.8-10.8 K/uL Red Blood Count 3.52 L 4.00-5.50 MIL/uL Hemoglobin 11.1 L 12.0-16.0 g/dL Hematocrit 31.9 L 36-48 % Mean Corpuscular Volume 90.6 79-99 fL Mean Corpuscular Hemoglobin 31.5 27.0-33.0 pg Mean Corpuscular Hemoglobin Concent 34.8 32.0-36.0 g/dL Red Cell Distribution Width 13.4 11.0-15.5 % Platelet Count 243 130-400 K/uL Mean Platelet Volume 10.8 H 7.5-10.5 fL Immature Granulocyte % (Auto) 0.7 0-1 % Neutrophils (%) (Auto) 52.4 40.0-77.0 % Lymphocytes (%) (Auto) 33.2 21.0-51.0 % Monocytes (%) (Auto) 11.0 3.0-13.0 % Eosinophils (%) (Auto) 1.6 0.0-8.0 % Basophils (%) (Auto) 1.1 0.0-5.0 % Neutrophils # (Auto) 3.0 1.8-7.7 K/uL Lymphocytes # (Auto) 1.9 1.0-4.8 K/uL Monocytes # (Auto) 0.6 0.1-1.0 K/uL Eosinophils # (Auto) 0.09 0.00-0.70 K/uL Basophils # (Auto) 0.06 0.00-0.20 K/uL Absolute Immature Granulocyte (auto 0.04 0-1 K/uL Nucleated Red Blood Cells 0.0 0.0-0.19 % Red Blood Cell Morphology See comments Chemistry Labs: Test 08/01/24 05:31 08/01/24 05:23 07/31/24 15:00 07/31/24 14:53 Range/Units Sodium Level 137 136-145 mmol/L Potassium Level 4.2 3.5-5.1 mmol/L Chloride Level 97 L 101-111 mmol/L Carbon Dioxide Level 36 H 21-32 mmol/L Blood Urea Nitrogen 0 L 7-18 mg/dL Creatinine 0.7 0.5-1.0 mg/dL Glomerular Filtration Rate Calc 91 >90 mL/min Random Glucose 104 70-105 mg/dL Hemoglobin A1c 5.3 4.0-6.0 % Estimated Average Glucose (eAG) 105 70-126 mg/dL Total Calcium 8.1 L 8.5-10.1 mg/dL Phosphorus Level 2.6 2.5-4.9 mg/dL Magnesium Level 1.60 L 1.80-2.40 mg/dL Total Creatine Kinase 97 # 21-232 U/L Troponin I High Sensitivity 5.2 4-50 ng/L Thyroid Stimulating Hormone (TSH) 2.37 # 0.36-3.74 uIU/mL Whole Blood Glucose 108 70-110 MG/DL Serum Osmolality 265 L 278-305 mOsm/kg Total Bilirubin 1.1 H 0.2-1.0 mg/dL Aspartate Amino Transf (AST/SGOT) 25 10-37 U/L Alanine Aminotransferase (ALT/SGPT) 34 12-78 U/L Alkaline Phosphatase 82 50-136 U/L Total Protein 6.5 6.0-8.3 g/dL Albumin 3.5 3.5-5.0 g/dL Test 07/31/24 10:22 Range/Units B-Type Natriuretic Peptide 60 0-100 pg/mL DIAGNOSTICS / RADIOLOGY RESULTS: [ ] PLAN Admit to medsurg with tele monitoring. nurse to update home meds and reconcile once available. Tele monitoring CMP now to recheck K. NEURO: Minimize central acting medications as possible. Maintain fall precautions, adequate lighting during the day multimodal pain management PULMONARY: Supplemental 02 as needed. Maintain aspiration precautions at all times maintain o2 sats above 92% CARDIOVASCULAR: Follow hemodynamics. 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 Continue stool softeners and laxatives as needed. clear liquids for now CT abdomen and pelvis to r/o SBO Bowel regimen KIDNEYS & ELECTROLYTES: Strict monitoring of intake, output and overall fluid balance. Avoid nephrotoxic medications to the extent possible. Medications to be dosed according to renal function. Monitor electrolytes and replace as needed ENDOCRINE: Maintain blood glucose between 100-180 at all times. Hypoglycemia protocol in place INFECTIOUS DISEASE: Trend temperature, WBC and procalcitonin level Follow cultures, deescalate antibiotics as soon as possible. Panculture if new onset fever ONCOLOGY/HEMATOLOGY/COAGULATION: Monitor for s/s of bleeding Monitor hemoglobin, coagulation studies as needed SKIN: Pressure ulcer prevention per facility protocol Specialty mattress ORTHO/REHAB: Continue PT/OT Prophylaxis: Continue GI and DVT prophylaxis Code Status: Full Resuscitation Disposition: TBD Other: Total patient care time exceeds 35 minutes excluding all procedures. YVETTE KEENAN Aug 01, 2024 13:02
--- NOTE | 2024-08-01 14:25 | NUR ---
DCP: HOME Pt lives alone in her apt. Pt has provider 7hrs a day to assist with ADLS, home management, meal prep and transportation thru [facility]. Pt has walker with seat. No HH or HD services. PCP is Sailaja Lord and uses [facility] for rx. Daughter Libby Gallardo [phone] is Er Contact. Caregiver is Jo Ann Morgan [phone]. Discussed dcp, pt decline placement/rehab. Will dc home, caregiver to transport Addendum: 08/01/24 at 1426 by ASIF NEWTON Amended: Links added.
[2024-08-01] MEDS ORDERED: AMLO-257 PO (14:53)
[2024-08-01] MEDS ORDERED: VIBE75TA PO (14:53)
[2024-08-01] MEDS ORDERED: LINA145C PO (14:53)
[2024-08-01] MEDS ORDERED: ATOR10 PO (14:53)
[2024-08-01] MEDS ORDERED: LEVO5TAB13 PO (14:53)
[2024-08-01] MEDS ORDERED: DULO30CA52 PO (14:53)
[2024-08-01] MEDS ORDERED: MORP30TA71 PO (14:53)
[2024-08-01] MEDS ORDERED: ONDA-104 PO (14:53)
[2024-08-01] MEDS ORDERED: CLON0.5T23 PO (14:53)
[2024-08-01] MEDS ORDERED: ARIP5TAB51 PO (14:53)
[2024-08-01] MEDS ORDERED: BACL20TA PO (14:53)
[2024-08-01] MEDS ORDERED: OLME-12 PO (14:53)
[2024-08-01] MEDS ORDERED: NABU-141 PO (14:53)
[2024-08-01] MEDS ORDERED: PREG100C56 PO (14:53)
--- NOTE | 2024-08-01 15:25 | NUR ---
Nutrition consult per electrolyte imbalance Reviewed labs, notes, and medications. Pt with insomnia, no BM for 10 days, w/ diverticulosis, on CLD, iv fluids, iv abx, sedated, hypomagnesemia 1.60, hypocalcemia 8.1, elevated serum osmolality 265 per chart review. Wt via standing scale, last BM 07/31/24, no edema, well nourished, adequate nutrition, no wounds per nursing. Poor appetite may be due per no BM for 10 days. Recommendations: -Provide ensure clear TID w/ trays while pt on CLD -Monitor PO intake -Encourage PO intake as able -If poor PO intake continues consider appetite stimulant -Monitor BM -If no BM >3 days consider stool softener -Monitor electrolytes -Replenish electrolytes per protocol -Monitor wts -Reweigh as able -Order Vit D, vit b-12 labs to rule out deficiencies -Provide b-complex QD -Advance diet when medically feasible to HH diet -Texture per CLOTHES SHAKER recs -Recommend Pt to follow up with PCP -Monitor goals of care RD to follow + available for consult per protocol Addendum: 08/01/24 at [address] Amended: Links added.
[2024-08-01] MEDS: LACTULOSE 20 GM/30 ML UDCUP PO PRN (15:45)
--- NOTE | 2024-08-01 20:50 | NUR ---
MEDS SHIFT ASSESSMENT DONE, PLEASE REFER TO CHART. PT ASSISTED TO THE RESTROOM THEN BACK TO BED. PT HAD ALREADY SEVERAL BOWEL MOVEMENTS. DUE MEDS ADMINISTERED, TOLERATED WELL. KEPT RESTED AND COMFORTABLE IN BED. CALL LIGHT WITHIN REACH.
[2024-08-02 03:43] VITALS: BP 140/63; PULSE 62; RESP 18; TEMP 97.5
[2024-08-02 04:26] LABS: BASOPHILS # (AUTO) 0.05 K/uL (0.00-0.20); BASOPHILS % (AUTO) 0.7 % (0.0-5.0); EOSINOPHILS # (AUTO) 0.14 K/uL (0.00-0.70); HEMATOCRIT 31.3 % (36-48); IMMATURE GRANULOCYTE ABSOLUTE 0.06 K/uL (0-1); LYMPHOCYTES # (AUTO) 1.9 K/uL (1.0-4.8); LYMPHOCYTES % (AUTO) 26.8 % (21.0-51.0); MEAN CORPUSCULAR HEMOGLOBIN 31.2 pg (27.0-33.0); MEAN CORPUSCULAR HGB CONC 33.9 g/dL (32.0-36.0); MEAN CORPUSCULAR VOLUME 92.1 fL (79-99); MONOCYTES # (AUTO) 0.6 K/uL (0.1-1.0); MONOCYTES % (AUTO) 8.3 % (3.0-13.0); NEUTROPHILS # (AUTO) 4.4 K/uL (1.8-7.7); NEUTROPHILS % (AUTO) 61.4 % (40.0-77.0); PLATELET COUNT (AUTO) 235 K/uL (130-400); RED CELL DISTRIBUTION WIDTH 13.7 % (11.0-15.5); WHITE BLOOD COUNT (AUTO) 7.1 K/uL (4.8-10.8)
[2024-08-02 04:38] LABS: CREATININE 0.7 mg/dL (0.5-1.0); MAGNESIUM 1.9 mg/dL (1.80-2.40); POTASSIUM 4.2 mmol/L (3.5-5.1)
--- NOTE | 2024-08-02 06:46 | NUR ---
MG PT SLEPT AT INTERVALS DURING THE SHIFT. NO DISTRESS NOTED. MG REPLACEMENT IV HUNG FOR MG=1.9. KEPT RESTED AND COMFORTABLE. CALL LIGHT WITHIN REACH. FOR MORE CARE.
[2024-08-02 08:00] VITALS: BP 135/63; PULSE 61; RESP 16; TEMP 98.2; O2SAT 96
[2024-08-02 08:05] VITALS: PULSE 56; RESP 18; O2SAT 97
[2024-08-02 12:00] VITALS: BP 139/62; PULSE 66; RESP 18; TEMP 98.1
[2024-08-02] MEDS: BisaCODYL 10 MG SUPP.RECT RC ONE (12:37)
[2024-08-02 13:12] LABS: CORTISOL PM 1.5 ug/dL (2.3-11.9)
[2024-08-02] MEDS ORDERED: NITR50CA PO (13:48)
--- NOTE | 2024-08-02 14:30 | NUR ---
patient discharged home with copies of discharge summary
--- NOTE | 2024-08-02 15:45 | NUR ---
discharged patient with copies of discharge summarry and instructions to follow per md instructions
--- NOTE | 2024-08-02 22:13 | DS ---
[facility] DISCHARGE SUMMARY Date Patient Seen: Aug 02, 2024 Time of Visit: 22:11 Supervising Physician: Dr. Engle Primary Care Physician: Zeb Lord MD Outpatient Specialists: Cardiology Dr Madison Inpatient Consults: DR Madison HOSPITAL COURSE: HPI (per admitting provider) his is a 74-year-old obese female with a past medical history of chronic back pain on morphine at home, lumbar back surgery, diastolic heart failure EF of 55-60%, essential hypertension, insomnia, depression, anxiety and falls who came into the emergency department for complaint of constipation with no bowel movement in the last 10 days. Patient also reported frequent falls with last fall being four days ago. Patient reported head and neck pain CT of the head and neck appeared unremarkable per ED provider pending radiology reading. Per ED provider he recommends patient to be admitted for electrolyte abnormalities. On assessment of patient she is awake alert and oriented x3, patient has slow speech but answers all questions appropriately. She reports generalized body pain due to fibromyalgia and arthritis. Patient also states she takes morphine 3 times a day for her chronic back pain and fibromyalgia. As per patient she had to come into the emergency department because she has not had a bowel movement in 10 days. Patient reports she ran out of her MiraLax at home which may have contribute to her constipation. She reports recurring falls last fall being four days ago. She reports not remembering how she fell. Pt does reports urinary frequency but denies dysuria. CBC is unremarkable, chemistries shows s odium of 123 potassium of 2.9 chloride of 84 carbon dioxide of 38 BUN of four creatinine of 0.7 and glucose of 121 mg/dL. Urinalysis leukocyte esterase 75 and WBCs 2-5. The patient was treated for the following problems: ACTIVE PROBLEM LIST FOR THE HOSPITALIZATION: Electrolyte derangement (hyponatremia, hypokalemia, hypochloremia), corrected Acute cystitis, POA treated Constipation R/O SBO, POA, resolved Hyperglycemia, POA, resolved Ectopic atrial rhythm, prolonged QT 675, POA CHRONIC PROBLEMS: continue previous management per PCP unless otherwise indicated Frequent falls, POA Suspect Syncope episodes, POA Diastolic heart failure with EF of 55-60% on 2021 Essential hypertension, POA Anxiety Depression Chronic back pain 2/2 back surgery Noncompliant Obesity Suspected VALDEMAR undiagnosed and untreated, POA (STOP-Bang Score 4 points) Serum CO2 38 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 PCP notified of patients admission, hospital course and discharge. PHYSICAL EXAM: GENERAL: alert, weak, awake oriented x 3 HEENT: EOMI, Sclera non icteric, moist mucosa NECK: Supple, no JVD, trachea midline, neck pain, negative Brudzinski's sign, and negative Kernig's sign. LUNGS: Clear breath sounds bilaterally. No wheezes HEART: Regular rate and rhythm. Normal S1 and S2, without murmurs ABD: Abdomen soft, nontender. Bowel sounds present EXT: No clubbing cyanosis or edema NEURO: Alert and oriented to person, follows commands, reports lumbar pain HX of lower back surgery. FOLLOW-UP: Follow-up with PCP in 2-3 days RECOMMENDATIONS: See Discharge Instructions This case was seen and discussed with my supervising physician. More than 30 minutes spent on discharge process, including evaluation of the patient, discussion with nursing staff, medication reconciliation and follow-up appointments YVETTE KEENAN Aug 02, 2024 22:13
== END 2024-08-02 14:37 | disposition home or self-care (01) | DRG 389 ==
LOC: EDH 09:59 → EDHIP 12:06 → 4AH 21:00
PROVIDERS: ADMIT Internal Medicine; ATTEND Internal Medicine
DX: K56.609 Unspecified intestinal obstruction, unspecified as to partial versus complete obstruction (principal); I50.32 Chronic diastolic (congestive) heart failure; N30.00 Acute cystitis without hematuria; K59.00 Constipation, unspecified; E87.8 Other disorders of electrolyte and fluid balance, not elsewhere classified; E87.6 Hypokalemia; R73.9 Hyperglycemia, unspecified; R94.31 Abnormal electrocardiogram [ECG] [EKG]; F32.A Depression, unspecified; G89.29 Other chronic pain; M54.9 Dorsalgia, unspecified; Z96.659 Presence of unspecified artificial knee joint; R55 Syncope and collapse; F41.9 Anxiety disorder, unspecified; E66.9 Obesity, unspecified; Z20.822 Contact with and (suspected) exposure to COVID-19; F43.10 Post-traumatic stress disorder, unspecified; R29.6 Repeated falls; G44.309 Post-traumatic headache, unspecified, not intractable; K57.90 Diverticulosis of intestine, part unspecified, without perforation or abscess without bleeding; M79.7 Fibromyalgia; G47.00 Insomnia, unspecified; E86.0 Dehydration; I11.0 Hypertensive heart disease with heart failure; S16.1XXA Strain of muscle, fascia and tendon at neck level, initial encounter; Y93.89 Activity, other specified; Z68.29 Body mass index [BMI] 29.0-29.9, adult; Y92.89 Other specified places as the place of occurrence of the external cause; Z88.5 Allergy status to narcotic agent; Z79.891 Long term (current) use of opiate analgesic; Z91.199 Patient's noncompliance with other medical treatment and regimen due to unspecified reason; Z79.82 Long term (current) use of aspirin; Z79.899 Other long term (current) drug therapy
CPT/HCPCS: 36415; 70450; 72125; 74018; 74176; 80048; 80053; 81001; 82306; 82533; 82550; 82607; 82948; 83036; 83735; 83880; 83930; 84100; 84443; 84484; 85025; 87086; 87186; 87426; 87804; 93005; 96360; 96361; 99285; G0378; J1171; J2543; J3475; J7030; J7120